=== PATIENT | male | born 1970 | race Caucasian/White ===

== ENCOUNTER → 2019-05-08 12:18 | Outpatient (BNVA) | payer MEDICAID, SELFPAY | PROVIDERS: Family Provider Family Medicine; PCP Family Medicine; Visit Provider Family Medicine | DX: Z01.89 Encounter for other specified special examinations (principal) | CPT/HCPCS: 36415; 83036 ==

== ENCOUNTER → 2019-06-09 09:45 | Outpatient (BNVA) | payer MEDICAID, SELFPAY | PROVIDERS: Family Provider Family Medicine; PCP Family Medicine; Visit Provider Family Medicine | DX: I10 Essential (primary) hypertension (principal); E11.9 Type 2 diabetes mellitus without complications; M50.30 Other cervical disc degeneration, unspecified cervical region; J44.9 Chronic obstructive pulmonary disease, unspecified | CPT/HCPCS: 80053; 80061; 82044; 85025 ==

== ENCOUNTER → 2019-08-07 07:48 | Outpatient (BNVA) | payer MEDICAID, SELFPAY | PROVIDERS: Family Provider Family Medicine; PCP Family Medicine; Visit Provider Nurse Practitioner | DX: F33.1 Major depressive disorder, recurrent, moderate (principal); F41.1 Generalized anxiety disorder | CPT/HCPCS: 99213 ==

== ENCOUNTER → 2019-09-01 09:23 | Outpatient (BNVA) | payer MEDICAID, SELFPAY | PROVIDERS: Family Provider Family Medicine; PCP Family Medicine; Visit Provider Family Medicine | DX: E78.5 Hyperlipidemia, unspecified (principal) | CPT/HCPCS: 80053; 80061 ==

== ENCOUNTER → 2019-11-09 07:34 | Outpatient (BNVA) | payer MEDICAID, SELFPAY | PROVIDERS: Family Provider Family Medicine; PCP Family Medicine; Visit Provider Nurse Practitioner | DX: F33.1 Major depressive disorder, recurrent, moderate (principal); F41.1 Generalized anxiety disorder | CPT/HCPCS: 99213 ==

== ENCOUNTER → 2019-12-01 11:46 | Outpatient (BNVA) | payer MEDICAID, SELFPAY | PROVIDERS: Family Provider Family Medicine; PCP Family Medicine; Visit Provider Family Medicine | DX: I10 Essential (primary) hypertension (principal); M50.30 Other cervical disc degeneration, unspecified cervical region; R73.03 Prediabetes; E78.5 Hyperlipidemia, unspecified | CPT/HCPCS: 80053; 80061; 83036 ==

== ENCOUNTER → 2020-01-23 07:40 | Outpatient (BNVA) | payer MEDICAID, SELFPAY | PROVIDERS: Family Provider Family Medicine; PCP Family Medicine; Visit Provider Nurse Practitioner | DX: F41.1 Generalized anxiety disorder (principal); F33.1 Major depressive disorder, recurrent, moderate | CPT/HCPCS: 99213 ==

== ENCOUNTER → 2020-06-03 09:04 | Outpatient (BNVA) | payer MEDICAID, SELFPAY | PROVIDERS: Family Provider Family Medicine; PCP Family Medicine; Visit Provider Family Medicine | DX: E78.5 Hyperlipidemia, unspecified (principal); I10 Essential (primary) hypertension; Z13.6 Encounter for screening for cardiovascular disorders; R35.1 Nocturia; E11.9 Type 2 diabetes mellitus without complications; M50.30 Other cervical disc degeneration, unspecified cervical region | CPT/HCPCS: 80053; 80061; 81015; 83036; 84153; 85025 ==

== ENCOUNTER → 2020-06-04 16:20 | Outpatient (BNVA) | payer MEDICAID, SELFPAY | PROVIDERS: Family Provider Family Medicine; PCP Family Medicine; Visit Provider Family Medicine | DX: E78.5 Hyperlipidemia, unspecified (principal); I10 Essential (primary) hypertension; Z13.6 Encounter for screening for cardiovascular disorders; R35.1 Nocturia; E11.9 Type 2 diabetes mellitus without complications; M50.30 Other cervical disc degeneration, unspecified cervical region; R79.89 Other specified abnormal findings of blood chemistry | CPT/HCPCS: 82977 ==

== ENCOUNTER → 2020-06-11 08:54 | Outpatient (BNVA) | payer MEDICAID, SELFPAY | PROVIDERS: Family Provider Family Medicine; PCP Family Medicine; Visit Provider Nurse Practitioner | DX: F33.1 Major depressive disorder, recurrent, moderate (principal); F41.1 Generalized anxiety disorder | CPT/HCPCS: 99214 ==

== ENCOUNTER → 2020-09-10 08:09 | Outpatient (BNVA) | payer MEDICAID, SELFPAY | PROVIDERS: Family Provider Family Medicine; PCP Family Medicine; Visit Provider Nurse Practitioner | DX: F33.1 Major depressive disorder, recurrent, moderate (principal); F41.1 Generalized anxiety disorder | CPT/HCPCS: 99214 ==

== ENCOUNTER 2020-09-30 09:00 | Outpatient (CLI) | payer MEDICAID, SELFPAY | END 2020-09-30 09:01 | disposition home or self-care (01) | LOC: LAB 12-09 12:00 | PROVIDERS: PCP Family Medicine; Visit Provider Family Medicine | DX: E78.5 Hyperlipidemia, unspecified (principal) | CPT/HCPCS: 80053; 83036 ==

== ENCOUNTER 2020-10-02 12:58 | Outpatient (CLI) | payer MEDICAID, SELFPAY ==
--- NOTE | 2020-10-02 13:30 | XR_ITS ---
WS: [id number] KNEE LEFT TECHNIQUE: 3 views of the left knee CLINICAL INFORMATION: acute left knee pain COMPARISON: None. FINDINGS: Left knee is normal in appearance. No evidence of acute fracture dislocation. Small suprapatellar eff usion. Mild soft tissue edema.. Patella is normal. XR/XR knee LT 3V* [id number] IMPRESSION: 1. Small suprapatellar effusion with mild soft tissue edema. 2. No acute fractures. Kellgren-Dmitriy Classification: grade 0 (none): definite absence of x-ray skylar nges of osteoarthritis
--- NOTE | 2020-10-02 14:00 | XR_ITS ---
WS: [id number] HIP WITH PELVIS RIGHT TECHNIQUE: 3 views of the right hip with pelvis CLINICAL INFORMATION: acute right hip pain COMPARISON: None. FINDINGS: Normal anatomic alignment. Right hip is normal in appearance. No acute fractures. Normal visualized r ight pubic rami. XR/XR hip RT 2-3V wo/w pel* [id number] IMPRESSION: Normal right hip Tonnis classification:
== END 2020-10-02 12:59 | disposition home or self-care (01) ==
LOC: RADWPI 13:00
PROVIDERS: PCP Family Medicine; Visit Provider Family Medicine
DX: M25.551 Pain in right hip (principal); M25.562 Pain in left knee; M25.462 Effusion, left knee; R60.0 Localized edema
CPT/HCPCS: 73502; 73562

== ENCOUNTER 2020-11-01 08:03 | Outpatient (CLI) | payer MEDICAID, SELFPAY ==
[2020-11-01 08:27] VITALS: BMI 30.3
--- NOTE | 2020-11-01 08:28 | ECG_ITS ---
[facility] Test Date: 2020-11-01 Pat Name: Joselito Harris Department: Room: Gender: Male Investor Relations Coordinator: : 1970 Requested By: Cindy Bolanos Order Number: [id number] Kae MD: Dhruv Galloway M.D. Interpretive Statements NAME OF STUDY: LEXISCAN SESTAMIBI STRESS TEST INDICATION: [Atypical Chest Pain, ] Procedure: At the baseline, the blood pressure was 136/79 mmHg with a heart rate of 68 bpm. The electrocardiogram showed normal sinus rhythm, normal axis with normal ST and T's. The Lexiscan was infused over a period of 20 seconds. A total of 0.4 mg of Lexiscan was infused. The stress phase was continued for a total of 5 minutes. Heart rate was at the end of stress phase was 73 bpm and a blood pressure of 128/71 mmHg. The EKG at the peak infusion revealed since normal sinus rhythm with no significant ST-T wave changes. Sestamibi was injected 20 seconds after the Lexiscan infusion. Blood pressure at the end of recovery phase was 134/80 mmHg with a heart rate of 78 bpm. Conclusion: 1. Normal EKG response to Lexiscan infusion 2. No Lexiscan induced chest pain or cardiac arrhythmia. 3. Normal blood pressure and heart rate response. 4. Sestamibi/sestamibi perfusion scan pending; see separate report. Electronically Signed On 11-06-2020 13:27:15 CDT by Dhruv Galloway M.D. [id number]
--- NOTE | 2020-11-01 08:28 | NMCV_ITS ---
NM chaitanya perf SPECT r/s* [id number] Joselito Harris Age: 50 Gender: M : 1970 Exam Date: 11/01/2020 09:20 Ordering Phys: Cindy Bolanos DO Technologist: YAMILE Ko Exam Location: [facility] Indications: ATYPICAL CHEST PAIN STRESS TEST Please see separate stress test report [facility] for full findings IMAGE PROTOCOL Rest/Stress 1 Lexiscan Day Radiopharmaceutical Dose (mCi) Administration Site Administered by Rest: Tc-99m 10.6 IV YAMILE Carballo Sestamibi Stress:Tc-99m 32.4 IV YAMILE Carballo Sestamibi Rest: 01-Nov-2020 60 Discovery 630 Stress: 01-Nov-2020 30 Discovery 630 0.4mg Lexiscan. Images obtained in supine and prone position. SPECT RESULTS Technical Quality: Excellent Raw Data Analysis: Normal Image Corrections: No attenuation or motion correction applied Summed Stress Score: 1 Summed Rest Score: 1 Summed Difference Score: 0 PERFUSION FINDINGS There is homogenous radiotracer uptake throughout the myocardium. No evidence of ischemia is noted FUNCTIONAL RESULTS (calculated via Gated SPECT) Stress Image LV EF (%): 74 Stress EDV (mL):108 TID: 1.13 Stress ESV (mL):28 FUNCTIONAL FINDINGS: There is normal left ventricular systolic function. IMPRESSIONS 1. Normal myocardial perfusion imaging. No evidence of ischemia noted 2. LV systolic function is normal Dhruv Galloway MD (Electronically Signed) Final Date: 01 November 2020 11:28 S
[2020-11-01] MEDS: regadenoson 0.4 Mg/5 ml Syringe IVP (10:02)
[2020-11-01 10:12] VITALS: BP 134/80; PULSE 78
== END 2020-11-01 08:04 | disposition home or self-care (01) ==
LOC: CDL 08:05
PROVIDERS: PCP Family Medicine; Visit Provider Family Medicine
DX: R07.89 Other chest pain (principal)
CPT/HCPCS: 78452; 80053; 83036; 93017; A9500; J2785

== ENCOUNTER → 2020-12-05 08:28 | Outpatient (BNVA) | payer MEDICAID, SELFPAY | PROVIDERS: PCP Family Medicine; Visit Provider Nurse Practitioner | DX: F41.1 Generalized anxiety disorder (principal); F33.1 Major depressive disorder, recurrent, moderate | CPT/HCPCS: 99214 ==

== ENCOUNTER → 2021-02-17 12:08 | Outpatient (BNVA) | payer MEDICAID, SELFPAY | PROVIDERS: PCP Family Medicine; Visit Provider Family Medicine | DX: I10 Essential (primary) hypertension (principal); E78.5 Hyperlipidemia, unspecified; R73.03 Prediabetes | CPT/HCPCS: 80053; 80061; 83036; 83721; 85025 ==

== ENCOUNTER → 2021-03-17 07:40 | Outpatient (BNVA) | payer MEDICAID, SELFPAY | PROVIDERS: PCP Family Medicine; Visit Provider Nurse Practitioner | DX: F41.1 Generalized anxiety disorder (principal); F33.1 Major depressive disorder, recurrent, moderate | CPT/HCPCS: 99214 ==

== ENCOUNTER → 2021-09-04 11:13 | Outpatient (BNVA) | payer MEDICAID, SELFPAY | PROVIDERS: PCP Family Medicine; Visit Provider Nurse Practitioner | DX: F41.1 Generalized anxiety disorder (principal); F33.1 Major depressive disorder, recurrent, moderate | CPT/HCPCS: 80053; 80061; 80074; 82043; 83036; 99214 ==

== ENCOUNTER 2021-12-29 08:04 | Outpatient (CLI) | payer MEDICAID, SELFPAY ==
--- NOTE | 2021-12-29 08:30 | US_ITS ---
WS: [id number] RIGHT UPPER QUADRANT ULTRASOUND HISTORY: transaminitis COMPARISON: None available. Liver: 20.7 cm in length. Liver is enlarged and dense. Coarse echotexture throughout. Portions of the liver difficult to penetrate. No mass or bile duct dilatation. Portal Vein: Normal hepatopetal flow with monophasic waveform. Gallbladder: Normally distended gallbladder with no stones or wall thickening. CBD: 0.4 cm Pancreas: Normal size and echogenicity. Right kidney: 13.9 cm in length. Normal size and echogenicity. No hydronephrosis or mass. Aorta and IVC: Unremarkable abdominal aorta and IVC. No ascites. US/US liver [id number] IMPRESSION: 1. Moderate hepatomegaly with moderate to severe hepatic steatosis. 2. No bile duct dilatation. 3. Negative gallbladder.
== END 2021-12-29 08:05 | disposition home or self-care (01) ==
LOC: RAD 08:05
PROVIDERS: PCP Family Medicine; Visit Provider Family Medicine
DX: R74.01 Elevation of levels of liver transaminase levels (principal); R16.0 Hepatomegaly, not elsewhere classified; K76.0 Fatty (change of) liver, not elsewhere classified
CPT/HCPCS: 76705

== ENCOUNTER 2022-03-02 11:05 | Outpatient (CLI) | payer MEDICAID, SELFPAY ==
--- NOTE | 2022-03-02 11:11 | XRR_ITS ---
PROCEDURE INFORMATION: Exam: XR Lumbosacral Spine Exam date and time: 03/02/2022 11:17 AM Age: 51 years old Clinical indication: Low back pain and sciatica; Right; Patient HX: History--chronic low back pain and RT hip pain TECHNIQUE: Imaging protocol: Radiologic exam of the lumbosacral spine. Views: 2 or 3 views. COMPARISON: MR lumbar spine wo con* [id number] 04/25/2015 11:27 AM FINDINGS: Bones/joints: Normal. No acute fracture. Normal alignment. Soft tissues: Unremarkable. XR/XR lumbar spine 2-3V* [id number] IMPRESSION: No acute findings.
== END 2022-03-02 11:06 | disposition home or self-care (01) ==
LOC: RAD 11:06
PROVIDERS: PCP Family Medicine; Visit Provider Family Medicine
DX: M54.50 Low back pain, unspecified (principal); G89.29 Other chronic pain; I10 Essential (primary) hypertension
CPT/HCPCS: 72100; 80053; 85025

== ENCOUNTER → 2022-08-24 09:41 | Outpatient (BNVA) | payer MEDICAID, SELFPAY | PROVIDERS: PCP Family Medicine; Visit Provider Family Medicine | DX: I10 Essential (primary) hypertension (principal); R35.1 Nocturia; R73.03 Prediabetes; E78.5 Hyperlipidemia, unspecified; J43.1 Panlobular emphysema; M54.16 Radiculopathy, lumbar region; G89.29 Other chronic pain | CPT/HCPCS: 80053; 80061; 83036; 84153; 85025 ==

== ENCOUNTER 2022-09-10 08:58 | Outpatient (CLI) | payer MEDICAID, SELFPAY ==
--- NOTE | 2022-09-10 09:30 | MR_ITS ---
WS: [id number] MRI LUMBAR SPINE NONCONTRAST TECHNIQUE: Sagittal T1, T2 and STIR imaging. Axial T1 and T2 imaging. CLINICAL INFORMATION: low back pain radiating into right leg COMPARISON: MRI 2016 FINDINGS: Mild lumbar curve. No acute compression. No high-grade central canal stenosis. L1-L2: Mild facet arthropathy. Spinal canal and foramen are patent. L2-L3: Mild annular bulging with mild central canal stenosis. Slight narrowing of the subarticular re cess bilaterally. Mild facet arthropathy. Small LEFT foraminal protrusion with mild LEFT foraminal na rrowing. RIGHT foramen is patent. L3-L4: Mild annular bulging with mild central canal stenosis. Impingement traversing L4 nerve roots L EFT greater than RIGHT. Mild LEFT foraminal narrowing. RIGHT foramen is patent. Slight retrolisthesis . Mild facet arthropathy. L4-L5: Mild annular bulging with slight narrowing of the subarticular recess bilaterally. Mild centra l canal stenosis. Moderate facet arthropathy. Mild RIGHT greater than LEFT foraminal narrowing. L5-S1: No significant disc bulging. Mild facet arthropathy. Spinal canal and foramen are patent. Visualized pelvic bony structures: Normal. Paravertebral soft tissues: Normal. MR/MR lumbar spine wo con* [id number] IMPRESSION: 1. Tiny LEFT foraminal protrusion L2-L3 with slight contact of the exiting LEF T L2 nerve root. This is progressed compared to previous. 2. Mild central canal stenosis L2-L3 L3-L4 and L4-L5 with impingement on the s ubarticular recess bilateral L2-L3, LEFT L3-L4 and bilateral L4-L5. Central can al stenosis is progressed. 3. Mild LEFT L3-L4 foraminal narrowing progressed compared to previous. 4. Mild bilateral L4-L5 foraminal narrowing. 5. Moderate facet arthropathy worse at L3-L4 and L4-L5.
== END 2022-09-10 08:59 | disposition home or self-care (01) ==
PROVIDERS: PCP Family Medicine; Visit Provider Family Medicine
DX: M54.16 Radiculopathy, lumbar region (principal); G92.9 Unspecified toxic encephalopathy; M51.26 Other intervertebral disc displacement, lumbar region; M48.061 Spinal stenosis, lumbar region without neurogenic claudication; M47.817 Spondylosis without myelopathy or radiculopathy, lumbosacral region
CPT/HCPCS: 72148; 80053; 80061; 83036; 84153; 85025

== ENCOUNTER → 2022-10-08 10:16 | Outpatient (BNVA) | payer MEDICAID, SELFPAY | PROVIDERS: PCP Family Medicine; Visit Provider Anesthesiology Pain Medicine | DX: G89.29 Other chronic pain (principal); M54.41 Lumbago with sciatica, right side; M79.604 Pain in right leg; M79.605 Pain in left leg; I77.9 Disorder of arteries and arterioles, unspecified | CPT/HCPCS: 72050; 99205 ==

== ENCOUNTER → 2022-11-24 13:34 | Outpatient (BNVA) | payer MEDICAID, SELFPAY | PROVIDERS: PCP Family Medicine; Visit Provider Anesthesiology Pain Medicine | DX: M47.816 Spondylosis without myelopathy or radiculopathy, lumbar region (principal); M54.41 Lumbago with sciatica, right side; G89.29 Other chronic pain | CPT/HCPCS: 64493; 64494; 64495; J3490 ==

== ENCOUNTER → 2022-12-08 09:03 | Outpatient (BNVA) | payer MEDICAID, SELFPAY | PROVIDERS: PCP Family Medicine; Visit Provider Anesthesiology Pain Medicine | DX: M54.41 Lumbago with sciatica, right side (principal); G89.29 Other chronic pain | CPT/HCPCS: 99214 ==

== ENCOUNTER → 2022-12-16 13:24 | Outpatient (BNVA) | payer MEDICAID, SELFPAY | PROVIDERS: PCP Family Medicine; Visit Provider Anesthesiology Pain Medicine | DX: M47.816 Spondylosis without myelopathy or radiculopathy, lumbar region (principal); M54.41 Lumbago with sciatica, right side; G89.29 Other chronic pain | CPT/HCPCS: 64493; 64494; 64495; J3490 ==

== ENCOUNTER → 2023-01-13 10:51 | Outpatient (BNVA) | payer MEDICAID, SELFPAY | PROVIDERS: PCP Family Medicine; Referring Provider Anesthesiology Pain Medicine; Visit Provider Anesthesiology Pain Medicine | DX: M54.41 Lumbago with sciatica, right side (principal); G89.29 Other chronic pain; M47.816 Spondylosis without myelopathy or radiculopathy, lumbar region; M51.26 Other intervertebral disc displacement, lumbar region; M48.061 Spinal stenosis, lumbar region without neurogenic claudication | CPT/HCPCS: 99214 ==

== ENCOUNTER → 2023-02-22 09:56 | Outpatient (BNVA) | payer MEDICAID, SELFPAY | PROVIDERS: PCP Family Medicine; Visit Provider Family Medicine | DX: R73.03 Prediabetes (principal) | CPT/HCPCS: 80053; 82043; 83036 ==

== ENCOUNTER → 2023-03-18 10:03 | Outpatient (BNVA) | payer MEDICAID, SELFPAY | PROVIDERS: PCP Family Medicine; Referring Provider Family Medicine; Visit Provider Orthopaedic Surgery | DX: M54.16 Radiculopathy, lumbar region (principal); G89.29 Other chronic pain; M48.062 Spinal stenosis, lumbar region with neurogenic claudication; M25.78 Osteophyte, vertebrae | CPT/HCPCS: 72100; 99204 ==

== ENCOUNTER → 2023-04-16 11:09 | Outpatient (BNVA) | payer MEDICAID, SELFPAY ==
[2023-04-07 09:38] VITALS: BP 132/75; BMI 29.3
== END ==
PROVIDERS: PCP Family Medicine; Visit Provider Family Medicine
DX: Z01.818 Encounter for other preprocedural examination (principal)
CPT/HCPCS: 80053; 81000; 85025

== ENCOUNTER 2023-04-19 05:40 | Day surgery (SDC) | payer MEDICAID, SELFPAY ==
--- OUTSIDE RECORDS SUMMARY | 2023-03-19 11:47 | XMS_ITS | Continuity of Care Document ---
Author Name Unknown Organization [facility] Address [id number] [address] Phone Care Team Providers Care Swabber Name Role Phone Jason MARTIN MD, Kyle Unavailable Unavailab le Allergies, Adverse Reactions, Alerts Substance Reaction Status Criticality CYCLOBENZAPRINE HCL Active No Infor mation Medications Medication Instructions Dosage Effective Dates (start - stop) Status Comments hydrocodone 7.5 mg-acetaminophen 325 mg tablet take 1 tablet by oral route every 4 hours as needed for pain 1 tablet - Active GABAPENTIN (unknown strength) take 3 capsule by oral route 3 times every day Not Available - Active SEROQUEL (unknown strength) take 1 tablet by oral route 2 times every day Not Available - Active CELEBREX (unknown strength) take 2 capsule by oral route 2 times every day Not Available - Active CYMBALTA (unknown strength) take 1 capsule by oral route 2 times every day Not Available - Active LISINOPRIL-HYDROC HLOROTHIAZIDE (unknown strength) take 1 tablet by oral route every day Not Available - Active hydrocodone 7.5 mg-acetaminophen 325 mg tablet take 1 tablet by oral route every 4 hours as needed for pain 1 tablet - No Longer Active ibuprofen 600 mg tablet take 1 tablet by oral route every 6 hours with food as needed for pain - No Longer Active Procedures Procedure Date Post Op No Charge EDR Approval Note Surgical Removal Of Erupted Tooth Requir ing Elevat Surgical Removal Of Erupted Tooth Requir ing Elevat Extraction, Erupted Tooth Or Exposed Jenny t (Elevati Extraction, Erupted Tooth Or Exposed Jenny t (Elev Extraction, Erupted Tooth Or Exposed Jenny t (Elev Extraction, Erupted Tooth Or Exposed Jenny t (Elev Extraction, Erupted Tooth Or Exposed Jenny t (Elev Extraction, Erupted Tooth Or Exposed Jenny t (Elev Extraction, Erupted Tooth Or Exposed Jenny t (Elev Extraction, Erupted Tooth Or Exposed Jenny t (Elev Extraction, Erupted Tooth Or Exposed Jenny t ([facility] Oral Evaluation ??? Problem Focu sed EDR Approval Note Pre-Pay For Services Advance Directives Directive Yes / No Effective Date File Name No Information Encounters Encounter Description Practice Location Reason(s) For Visit Diagnoses Date Provider Providers Copied on Encounter [facility], [id number], [id number], [place] tel:[phone] [facility] Encounter for dental exam and cleaning w/o abnormal findings Jason Wright. [address] [place], [address], [place]. tel:[phone] Referring Provider: Kyle Helton, [address] [place], [address]. tel:[phone] [facility], [id number], [id number], [place] tel:[phone] [facility] Encounter for dental exam and cleaning w/o abnormal findings Jason Wright. [address] [place], [address], [place]. tel:[phone] Referring Provider: Kyle Helton, [address] [place], [address]. tel:[phone] [facility], [id number], [id number], [place] tel:[phone] [facility] Encounter for dental exam and cleaning w/o abnormal findings Jason Wright. [address] [place], [address], [place]. tel:[phone] Referring Provider: Kyle Helton, [place], [address]. tel:[phone] Family History Family Member Type Diagnosis Age At Onset No Information Payers Payer name Insurance type Covered alliance party ID Authorizkristi tiboni(s) No Information Social History Type Description Quantity Date Captured Comments Alcohol Use Details Caffeine Use Details Unknown Tobacco Use Status Occasional cigarette smoker Smoking Status Current some day smoker Smoking Tobacco Use Details Cigarette: No Details Available Cigarette: No Details Available Sex Male Vital Signs Date / Time: Height Weight BMI Pulse Rate Blood Pressure Temperature Respiratory Rate Body Surface Area Head Circumference Head Circ. Percentile Wt./Maeya. Percentile BMI percentile Pulse Ox Inhaled Ox 3:44 PM 130/83 mm[Hg] Chief Complaint And Reason For Visit No Information Reason For Referral Reason For Referral No Information Plan Of Treatment Date Type Action Status Goal Tobacco cessation counseling completed Goal Tobacco cessation counseling completed History Of Present Illness Encounter Date Complaint History Of Prese nt Illness No Information Functional Status Date Functional Assessmen t No Information Instructions Date Instruction Additional Infor mation Lifestyle education Related to D ental Examination Lifestyle education Related to D ental Examination Assessments Type Assessment Date No Information Patient Care Teams Name Effective Dates (start - stop) Status Members No Information
[2023-04-07 09:38] VITALS: BP 132/75; BMI 29.3
[2023-04-19] VITALS (12 sets, daily range): BP systolic 120–140; BP diastolic 63–87; PULSE 66–88; RESP 12–18; TEMP 36.1–36.4; O2SAT 92–98; BMI 28.5
--- NOTE | 2023-04-19 | XR_ITS ---
WS: [id number] XR lumbar spine 1V [id number] REASON FOR EXAM: L3-4; L4-5 decompression FINDINGS: Intraoperative examination. AP views during surgery demonstrate surgical device overlying the right L3-L4 and right L4-L5 disc sp aces. IMPRESSION: Lumbar localization during surgery.
--- OUTSIDE RECORDS SUMMARY | 2023-04-19 05:41 | XMS_ITS | Continuity of Care Document ---
Author Name Unknown Organization [facility] Address [id number] [address] Phone Care Team Providers Care Fairground Operator Name Role Phone Jason MARTIN MD, Kyle [...] Extraction, Erupted Tooth Or Exposed Jenny t ([facility] Oral Evaluation ??? Problem Focu sed EDR Approval Note Pre-Pay For Services Advance Directives Directive Yes / No Effective Date File Name No Information Encounters Encounter Description Practice Location Reason(s) For Visit Diagnoses Date Provider Providers Copied on Encounter [facility], [id number], [id number], [place] tel:[phone] [facility] Encounter for dental exam and cleaning w/o abnormal findings Jason Wright. [address] [place], [address], [place]. tel:[phone] Referring Provider: Kyle Helton, [address] [place], [address]. tel:[phone] [facility], [id number], [id number], [place] tel:[phone] [facility] Encounter for dental exam and cleaning w/o abnormal findings Jason Wright. [address] [place], [address], [place]. tel:[phone] Referring Provider: Kyle Helton, [address] [place], [address]. tel:[phone] [facility], [id number], [id number], [place] tel:[phone] [facility] Encounter for dental exam and cleaning w/o abnormal findings Jason Wright. [address] [place], [address], [place]. tel:[phone] Referring Provider: Kyle Helton, [place], [address]. tel:[phone] Family History Family Member Type Diagnosis Age [...] Surface Area Head Circumference Head Circ. Percentile Wt./Ameya. Percentile BMI percentile Pulse Ox Inhaled Ox [...]
[2023-04-19] MEDS: sodium chloride 0.9% 1,000 ML 30 ML IV (06:14)
[2023-04-19 06:20] LABS: Glucose Point of Care 114 mg/dL (70-110)
--- NOTE | 2023-04-19 06:37 | W.PM.OPSUD ---
Surgery/Procedure H&P Update DATE OF PROCEDURE: April 19, 2023 DATE H&P PERFORMED: 04/16/23 H&P UPDATE INFORMATION: I have reviewed H&P completed within last 30 days, I have examined patient prior to procedure and No changes to prior documentation PREOP DIAGNOSIS: Lumbar stenosis PLANNED PROCEDURE: Operation Date: 04/19/23 07:00 Proposed Procedures p L3-4 L4-S1 Lumbar Spine Decompression Lumbar Decompression- STAND ON THE RIGHT(Right) - Devin Zimmer DO
[2023-04-19] MEDS: ceFAZolin 2,000 MG in sodium chloride 0.9% (plus) 50 ML 100 MG IV (06:56)
--- NOTE | 2023-04-19 07:20 | ANES.PREANE2 ---
Pre-Anesthetic Assessment Height/Weight: Height 1.85 m Weight 97.976 kg Temp Pulse Resp BP Pulse Ox O2 Del Method 97.5 F L 66 18 120/76 98 Room Air 04/19/23 06:04 04/19/23 06:04 04/19/23 06:04 04/19/23 06:04 04/19/23 06:04 04/19/23 06:04 Preop Diagnosis: Lumbar stenosis Operation Date: 04/19/23 07:00 Proposed Procedures p L3-4 L4-S1 Lumbar Spine Decompression Lumbar Decompression- STAND ON THE RIGHT(Right) - Devin Zimmer, DO Was Beta Johnnie taken within 24 hours: N/A Was Clonidine taken within 24 hours: N/A Last intake: Intake Last Liquid Date 04/18/23 Last Liquid Time 19:00 Last Solid Date 04/18/23 Last Solid Time 19:00 Social No tobacco Exam alert, oriented x 3, clear to auscultation bilaterally and regular rate & rhythm Airway Submandibular: within normal limits Cervical ROM: Other (Hx cervical fusion) Mallampati: Class II Dentition: false History/ROS No significant history except as noted and No significant complaints Pulmonary Asthma and Chronic Obstructive Pulmonary Disease CV/HEM Hypertension GI Gastroesophageal Reflux Disease well-controlled Metabolic Hyperlipidemia Musc/skel Lower Back Pain and Osteoarthritis/DJD Anesthetic Plan ASA status: 2 Anesthesia: General Risk of > 500 ml blood loss (7ml/kg in children): No Medications/Allergies Home Medications Medication Instructions Recorded Confirmed Last Taken Type TENS #1 ea 03/02/22 03/18/23 Unknown Rx lisinopril 20 1 tab PO QDAY 90 days #90 tabs 10/07/22 04/19/23 04/18/23 Rx mg-hydrochlorothiazide 25 mg tablet sildenafil (pulm.hypertension) 20 40 mg (2 x 20 mg) PO ONCE #30 tabs 02/22/23 04/19/23 Unknown Rx mg tablet metformin 500 mg tablet,extended 500 mg PO QDAY 90 days #90 tabs 02/23/23 04/19/23 04/17/23 Rx release 24 hr budesonide-formoterol HFA 160 2 puff inhalation BID #10.2 grams 03/09/23 04/19/23 04/17/23 Rx mcg-4.5 mcg/actuation aerosol inhaler (Symbicort) omeprazole 40 mg capsule,delayed 40 mg PO QDAY 30 days #90 caps 03/09/23 04/19/23 04/19/23 Rx release tiotropium bromide 18 mcg capsule 1 cap inhalation DAILY #60 03/09/23 04/19/23 04/18/23 Rx with inhalation device (Spiriva inhalations with HandiHaler) albuterol sulfate 90 mcg/actuation 90 mcg inhalation DAILY 04/15/23 04/19/23 04/17/23 History aerosol inhaler (Ventolin HFA) amlodipine 10 mg tablet 10 mg PO DAILY 04/15/23 04/19/23 04/19/23 History atorvastatin 10 mg tablet 10 mg PO DAILY 04/15/23 04/19/23 04/19/23 History duloxetine 60 mg capsule,delayed 60 mg PO BID 04/15/23 04/19/23 04/19/23 History release escitalopram oxalate 10 mg tablet 10 mg PO DAILY 04/15/23 04/19/23 04/19/23 History fenofibrate nanocrystallized 145 145 mg PO DAILY 04/15/23 04/19/23 04/19/23 History mg tablet gabapentin 800 mg tablet 800 mg PO BID 04/15/23 04/19/23 04/19/23 History meloxicam 15 mg tablet 15 mg PO DAILY 04/15/23 04/19/23 04/17/23 History quetiapine 100 mg tablet 100 mg PO BEDTIME 04/15/23 04/19/23 04/18/23 History quetiapine 25 mg tablet 25 mg PO BEDTIME 04/15/23 04/19/23 04/18/23 History Allergies Allergy/AdvReac Type Severity Reaction Status Date / Time acetaminophen [From Lortab] Allergy ALGY-Hives Verified 04/16/23 11:18 cyclobenzaprine Allergy Unknown Verified 04/16/23 11:18 [From Flexeril] hydrocodone [From Lortab] Allergy ALGY-Hives Verified 04/16/23 11:18 povidone-iodine Allergy Unknown Verified 04/16/23 11:18 [From Betadine] soap [From Betadine] Allergy Unknown Verified 04/16/23 11:18 Current Medications Generic Name Dose Route Start Last Admin Trade Name Freq PRN Reason Stop Dose Admin Sodium Chloride 1,000 mls @ 30 mls/hr 04/19/23:00 04/19/23 06:14 Sodium Chloride 0.9% IV 04/20/23 05:59 30 mls/hr .Q24H MIRIAN Administration PFSH Anesthesia Medical History Hepatic steatosis Psychiatric care Umbilical hernia, incarcerated Generalized anxiety disorder Major depressive disorder, recurrent, moderate Prediabetes Essential hypertension Anxiety and depression DDD (degenerative disc disease), cervical GERD (gastroesophageal reflux disease) COPD (chronic obstructive pulmonary disease) Erectile dysfunction Surgical History H/O cataract extraction History of neck surgery H/O knee surgery Family History Other CAD (coronary artery disease) Social History Smoking and tobacco/nicotine status: former use of tobacco/nicotine Alcohol intake: current Alcohol intake frequency: 0-2 Drinks per Day Alcohol type: beer Substance/Drug Use: current Substance/Drug use frequency: daily Data Anesthesia Cardiac Studies: Sestamibi Stress Test (Cardiology) 11/01/20
[2023-04-19] MEDS: lidocaine-epi 2% 20 mL INJ 10 ML INJECTION (07:39)
--- NOTE | 2023-04-19 08:31 | PM.OP ---
Operative Report Date of procedure: April 19, 2023 Pre-op diagnosis: Lumbar stenosis with neurogenic claudication Post-op diagnosis: same Procedure done: 1. L3-4 laminectomy with partial facetectomy 2. L4-5 laminectomy with partial facetectomy Surgeon: Devin Zimmer DO Estimated blood loss (mL): 5 Procedure: 1. L3-4 laminectomy with partial facetectomy 2. L4-5 laminectomy with partial facetectomy Patient is brought to the operative suite. After undergoing anesthesia they are placed in the prone position. All areas of impingement are well padded. Patient is then prepped and draped in the normal sterile fashion. A skin incision is made over the L3-4 level. This is confirmed under c-arm guidance. A series of dilators are passed and the tubular retractor is docked on the L3 lamina. A bovie is used to clear the soft tissue off the lamina and the L 3/4 facet joint. A high speed ermias is then used to perform the laminectomy and take down the medial aspect of the L 3/4 facet joint. A kerrison rongeure was then used to take down the remaining lamina and smooth the edge of the laminectomy up to the point where the ligamentum flavum attaches. Attention was then brought to the medial aspect of the facet joint. The remaining medial aspect of the superior and inferior aspect of the facet joint were taken down with the kerrison from the pedicle of L3 to L 4. The facet joint had significant hypertrophy. Attention was then brought to the Ligamentum Flavum. The ligament was taken down from the lamina of L3 to L4 and out medially to the remaining facet joint. The ligament was thick. The dura was then exposed. The dura was in good repair. The L3 nerve was then traced with a curette out the L3/4 foramen and found to be adequately decompressed. The L4 nerve was traced with a curette around the L4 pedicle. The lateral recess was opened with a kerrison helping to further decompress the L4 nerve. Wound is then irrigated copiously with saline and surgiflo is used to stop any bleeding. The tubular retractor is removed and the A skin incision is made over the L4-5 level. This is confirmed under c-arm guidance. A series of dilators are passed and the tubular retractor is docked on the L4 lamina. A bovie is used to clear the soft tissue off the lamina and the L 4/5 facet joint. A high speed ermias is then used to perform the laminectomy and take down the medial aspect of the L 4/5 facet joint. A kerrison rongeure was then used to take down the remaining lamina and smooth the edge of the laminectomy up to the point where the ligamentum flavum attaches. Attention was then brought to the medial aspect of the facet joint. The remaining medial aspect of the superior and inferior aspect of the facet joint were taken down with the kerrison from the pedicle of L4 to L 5. The facet joint had significant hypertrophy. Attention was then brought to the Ligamentum Flavum. The ligament was taken down from the lamina of L4 to L5 and out medially to the remaining facet joint. The ligament was thick. The dura was then exposed. The dura was in good repair. The L4 nerve was then traced with a curette out the L4/5 foramen and found to be adequately decompressed. The L5 nerve was traced with a curette around the L5 pedicle. The lateral recess was opened with a kerrison helping to further decompress the L5 nerve. Wound is then irrigated copiously with saline and surgiflo is used to stop any bleeding. The tubular retractor is removed and the wound is closed with vicryl and monocryl suture. Glue is then used to protect the wound. A sterile dressing is then placed. Patient was then placed in the supine position and transferred to the PACU in stable condition.
[2023-04-19] MEDS: oxyCODONE 5 mg IR Tab/Cap PO (09:45)
--- NOTE | 2023-04-19 16:29 | ANE.PACU2 ---
Inpatient post-anesthesia follow up: Airway intact: Yes Vital signs: Temperature 97.0 F Pulse Rate 81 Respiratory Rate 16 Blood Pressure 125/77 Pulse Oximetry 95 Oxygen Delivery Me thod Room Air Oxygen Flow Rate 2 Fraction of Inspir ed Oxygen Hydration adequate: Yes Nausea and vomiting: No Pain level: 3 Mental status: Baseline
== END 2023-04-19 10:55 | disposition home or self-care (01) ==
PROVIDERS: PCP Family Medicine; Visit Provider Orthopaedic Surgery
PROC: (CPT 63005; principal; 2023-04-19 07:00)
DX: M48.062 Spinal stenosis, lumbar region with neurogenic claudication (principal); Z98.1 Arthrodesis status; J44.9 Chronic obstructive pulmonary disease, unspecified; E78.5 Hyperlipidemia, unspecified; K21.9 Gastro-esophageal reflux disease without esophagitis; Z79.84 Long term (current) use of oral hypoglycemic drugs; I10 Essential (primary) hypertension; Z87.891 Personal history of nicotine dependence; R73.03 Prediabetes
CPT/HCPCS: 63047; 63048; 36416; 72020; 76000; 82962; J0690; J1100; J2405; J2704; J3010; J3490; J7030

== ENCOUNTER → 2023-05-04 14:33 | Outpatient (BNVA) | payer MEDICAID, SELFPAY ==
[2023-04-07 09:38] VITALS: BP 132/75; BMI 29.3
== END ==
PROVIDERS: PCP Family Medicine; Visit Provider Orthopaedic Surgery
DX: Z47.89 Encounter for other orthopedic aftercare (principal)
CPT/HCPCS: 99024

== ENCOUNTER → 2023-06-01 14:08 | Outpatient (BNVA) | payer MEDICAID, SELFPAY ==
[2023-04-07 09:38] VITALS: BP 132/75; BMI 29.3
== END ==
PROVIDERS: PCP Family Medicine; Visit Provider Orthopaedic Surgery
DX: M25.512 Pain in left shoulder; Z47.89 Encounter for other orthopedic aftercare
CPT/HCPCS: 99024

== ENCOUNTER → 2023-07-13 09:25 | Outpatient (BNVA) | payer MEDICAID, SELFPAY ==
[2023-04-07 09:38] VITALS: BP 132/75; BMI 29.3
== END ==
PROVIDERS: PCP Family Medicine; Referring Provider Orthopaedic Surgery; Visit Provider Student in an Organized Health Care Education/Training Program
DX: M25.512 Pain in left shoulder (principal); M75.42 Impingement syndrome of left shoulder
CPT/HCPCS: 20610; 73030; 99024; 99204; J3301

== ENCOUNTER → 2023-08-19 13:50 | Outpatient (BNVA) | payer MEDICAID, SELFPAY ==
[2023-04-07 09:38] VITALS: BP 132/75; BMI 29.3
== END ==
PROVIDERS: PCP Family Medicine; Visit Provider Family Medicine
DX: R73.03 Prediabetes (principal); R35.1 Nocturia; I10 Essential (primary) hypertension
CPT/HCPCS: 80053; 80061; 83036; 84153

== ENCOUNTER → 2023-10-28 15:15 | Outpatient (BNVA) | payer MEDICAID, SELFPAY ==
[2023-08-23 11:55] VITALS: BP 118/64; BMI 29.5
== END ==
PROVIDERS: PCP Family Medicine; Visit Provider Student in an Organized Health Care Education/Training Program
DX: M75.42 Impingement syndrome of left shoulder (principal)
CPT/HCPCS: 20610; 99213; J3301

== ENCOUNTER → 2024-04-25 13:58 | Outpatient (BNVA) | payer MEDICAID, SELFPAY ==
[2023-08-23 11:55] VITALS: BP 118/64; BMI 29.5
== END ==
PROVIDERS: PCP Family Medicine; Visit Provider Student in an Organized Health Care Education/Training Program
DX: M75.42 Impingement syndrome of left shoulder (principal); S49.92XA Unspecified injury of left shoulder and upper arm, initial encounter; X58.XXXA Exposure to other specified factors, initial encounter
CPT/HCPCS: 20610; 73030; 80053; 83036; 85025; 85651; 86140; 99213; J3301

== ENCOUNTER 2024-05-08 08:13 | Outpatient (CLI) | payer MEDICAID, SELFPAY ==
[2023-08-23 11:55] VITALS: BP 118/64; BMI 29.5
--- NOTE | 2024-05-08 08:30 | USCV_ITS ---
Joselito Harris Age: 53 Gender: M : 1970 Exam Date: 05/08/2024 08:20 Ordering Phys: Sailaja Eddy MD Technologist: [facility]R [place]am [place] [facility] [place]ication: opthalmology Risk Factors: Previous Vascular Surgery: Right Brachial BP: / Left Brachial BP: / Right Left Velocity (cm/s) Spectral Plaque Velocity (cm/s) Spectral Plaque Syst/Diast Broadening Syst/Diast Broadening 120.00/26.70 Prox CCA 98.70 / 25.20 77.20/ 26.70 Mid CCA 76.10 / 22.50 79.30/ 26.90 Distal CCA 76.30 / 23.20 63.10/ 21.30 Prox ICA 66.60 / 22.30 69.70/ 29.50 Mid ICA 89.20 / 36.70 74.30/ 27.20 Distal ICA 74.20 / 19.90 77.20 ECA 90.30 0.80 ICA/CCA 0.90 Antegrade Vertebral Antegrade 42.90/ 10.40 cm/s 47.30/ 15.30 cm/s Tri Subclavian Tri 70.40 65.90 CONCLUSIONS Right ICA stenosis <50%. Left ICA stenosis <50%. Intimal thickening in the common carotid arteries and internal carotid arteries bilaterally. Normal antegrade Doppler flow noted in the right vertebral artery. Normal antegrade Doppler flow noted in the left vertebral artery. Kyaw Pond MD (Electronically Signed) Final Date: 08 May 2024 10:13 S
== END 2024-05-08 08:14 | disposition home or self-care (01) ==
LOC: RAD 08:14
PROVIDERS: PCP Family Medicine; Visit Provider Family Medicine
DX: H35.9 Unspecified retinal disorder (principal); E78.5 Hyperlipidemia, unspecified; I10 Essential (primary) hypertension; I65.23 Occlusion and stenosis of bilateral carotid arteries; R93.89 Abnormal findings on diagnostic imaging of other specified body structures
CPT/HCPCS: 93880

== ENCOUNTER → 2024-05-09 12:47 | Outpatient (BNVA) | payer MEDICAID, SELFPAY ==
[2023-08-23 11:55] VITALS: BP 118/64; BMI 29.5
== END ==
PROVIDERS: PCP Family Medicine; Visit Provider Orthopaedic Surgery
DX: Z98.890 Other specified postprocedural states (principal); M54.9 Dorsalgia, unspecified; M25.551 Pain in right hip
CPT/HCPCS: 72100; 73502; 99214

== ENCOUNTER 2024-05-15 08:01 | Outpatient (CLI) | payer MEDICAID, SELFPAY ==
[2023-08-23 11:55] VITALS: BP 118/64; BMI 29.5
--- NOTE | 2024-05-15 08:45 | MR_ITS ---
WS: [id number] EXAMINATION: MR hip RT wo con* [id number] ORDER DATE: 05/15/2024 8:19 AM COMPARISON: None. HISTORY: rt hip pain CONTRAST: None. TECHNIQUE: Coronal STIR of the Pelvis. Coronal proton density, coronal T1, axial T2 fat sat, axial T1 , sagittal T2 fat sat, and sagittal T1 performed of the hip. FINDINGS: Mild degenerative narrowing RIGHT hip. Normal bone marrow signal. No acute fractures. No evidence of avascular necrosis. Normal visualized RIGHT pubic rami. Proximal femoral shafts are normal. Mild degenerative LEFT hip. Normal bone marrow signal in the sacrum. Small cystic lesion LEFT ilium l ikely degenerative. No RIGHT inguinal lymphadenopathy. Small fat-containing RIGHT inguinal hernia. Pa rtially visualized edema in the RIGHT paraspinal musculature at the edge of the [id number]-lbeo. MR/MR hip RT wo con* [id number] IMPRESSION: 1. Mild degenerative narrowing RIGHT hip. No acute fractures. No bone marrow e anton. 2. Partially visualized edema in the RIGHT paraspinal musculature at the edge of the field of imaging likely inflammatory or posttraumatic
== END 2024-05-15 08:02 | disposition home or self-care (01) ==
PROVIDERS: PCP Family Medicine; Visit Provider Orthopaedic Surgery
DX: M16.0 Bilateral primary osteoarthritis of hip (principal); K40.90 Unilateral inguinal hernia, without obstruction or gangrene, not specified as recurrent; R93.89 Abnormal findings on diagnostic imaging of other specified body structures
CPT/HCPCS: 73721

== ENCOUNTER → 2024-05-23 08:11 | Outpatient (BNVA) | payer MEDICAID, SELFPAY ==
[2023-08-23 11:55] VITALS: BP 118/64; BMI 29.5
== END ==
PROVIDERS: Family Provider Family Medicine; PCP Family Medicine; Visit Provider Orthopaedic Surgery
DX: Z09 Encounter for follow-up examination after completed treatment for conditions other than malignant neoplasm (principal)
CPT/HCPCS: 99213

== ENCOUNTER 2024-06-22 20:49 | Emergency (ER) | payer MEDICAID, SELFPAY ==
[2023-08-23 11:55] VITALS: BP 118/64; BMI 29.5
[2024-06-22 20:57] VITALS: BP 138/75; PULSE 93; RESP 16; TEMP 36.8; O2SAT 96; BMI 31.4
[2024-06-22 21:41] VITALS: BP 132/75; PULSE 94; RESP 16; O2SAT 95
--- NOTE | 2024-06-22 21:47 | XRR_ITS ---
PROCEDURE INFORMATION: Exam: XR Left Shoulder Exam date and time: 06/22/2024 9:56 PM Age: 53 years old Clinical indication: Injury or trauma; Fall; Blunt trauma (contusions or hematomas); Shoulder; Left TECHNIQUE: Imaging protocol: Radiologic exam of the left shoulder. Views: 2 or more views. COMPARISON: CR (UP EX, ) 06/22/2024 9:56 PM FINDINGS: Bones/joints: Post ACDF of the lower cervical spine. Soft tissues: Normal. XR/XR shoulder LT min 2V* [id number] IMPRESSION: No acute fracture or dislocation.
--- NOTE | 2024-06-22 21:47 | XRR_ITS ---
PROCEDURE INFORMATION: Exam: XR Left Elbow Exam date and time: 06/22/2024 9:56 PM Age: 53 years old Clinical indication: Injury or trauma; Fall; Blunt trauma (contusions or hematomas); Elbow; Left TECHNIQUE: Imaging protocol: Radiologic exam of the left elbow. Views: 3 or more views. COMPARISON: CR (CHEST, ) 06/22/2024 9:56 PM FINDINGS: Bones/joints: Nondisplaced fracture of the radial head. There is a moderate elbow joint effusion. Traction changes of the lateral humeral epicondyle. Soft tissues: There is soft tissue swelling. XR/XR elbow LT min 3V* [id number] IMPRESSION: Nondisplaced fracture of the radial head with moderate elbow joint effusion.
[2024-06-22 22:13] VITALS: RESP 16; O2SAT 97
[2024-06-22] MEDS: ondansetron hcl ODT 4 mg Tab PO (22:13)
[2024-06-22] MEDS: morphine 4 mg/mL SDV 1 mL 8 MG IM (22:13)
[2024-06-22 22:16] VITALS: BP 126/65; PULSE 87; RESP 18; O2SAT 95
--- NOTE | 2024-06-22 23:25 | ED_ITS ---
HPI - Fall General: Chief Complaint: Fall Stated Complaint: fall left arm, leg side Time Seen by Provider: 06/22/24 21:38 History of Present Illness: This patient is a 53-year-old white male who states he fell off steps tonight and landed on his left side. He is complaining of left shoulder pain and left elbow pain. Related Data Previous Rx's ?Medication ?Instructions ?Recorded TENS #1 ea 03/02/22 sildenafil (pulm.hypertension) 20 40 mg (2 x 20 mg) PO ONCE #30 tabs 02/22/23 mg tablet albuterol sulfate 90 mcg/actuation 90 mcg inhalation D AILY #8.5 grams 04/25/24 aerosol inhaler (Ventolin HFA) amlodipine 10 mg tablet 10 mg PO DAILY 90 days #90 t abs 04/25/24 atorvastatin 10 mg tablet 10 mg PO DAILY 90 days #90 t abs 04/25/24 budesonide-formoterol HFA 160 2 puff inhalation BID #1 0.2 grams 04/25/24 mcg-4.5 mcg/actuation aerosol inhaler (Symbicort) fenofibrate nanocrystallized 145 145 mg PO DAILY 90 da ys #90 tabs 04/25/24 mg tablet gabapentin 800 mg tablet See Rx Instructions .Route 0 04/25/24 .COMPLEX #90 tabs lisinopril 10 mg tablet 10 mg PO DAILY 90 days #90 t abs 04/25/24 lisinopril 20 See Rx Instructions .Route 0 04/25/24 mg-hydrochlorothiazide 25 mg tablet .COMPLEX 90 days # 90 tabs meloxicam 15 mg tablet See Rx Instructions .Route 0 04/25/24 .COMPLEX #90 tabs metformin 500 mg tablet,extended 500 mg PO QDAY 90 day s #90 tabs 04/25/24 release 24 hr omeprazole 40 mg capsule,delayed 40 mg PO DAILY 90 day s #90 caps 04/25/24 release tiotropium bromide 18 mcg capsule See Rx Instructions .Route 04/25/24 with inhalation device (Spiriva .COMPLEX #30 caps with HandiHaler) prednisone 20 mg tablet 20 mg PO DAILY 7 days #15 ta bs 05/09/24 duloxetine 60 mg capsule,delayed 60 mg PO BID #60 caps 06/19/24 release escitalopram oxalate 10 mg tablet 10 mg PO DAILY #30 t abs 06/19/24 quetiapine 100 mg tablet 100 mg PO BEDTIME #60 tabs 0 06/19/24 quetiapine 25 mg tablet 25 mg PO TID PRN anxiety #90 tabs 06/19/24 tramadol 37.5 mg-acetaminophen 325 1 tab PO Q6H PRN pa in #30 tabs 06/22/24 mg tablet Allergies Allergy/AdvReac Type Severity Reaction Status Date / Time acetaminophen (From Lortab) Allergy ALGY-Hives Verified 06/19/24 10:56 cyclobenzaprine (From Allergy Unknown Verified 06/19/24 10:56 Flexeril) hydrocodone (From Lortab) Allergy ALGY-Hives Verified 06/19/24 10:56 povidone-iodine (From Allergy Unknown Verified 06/19/24 10:56 Betadine) soap (From Betadine) Allergy Unknown Verified 06/19/24 10:56 Review of Systems General: Reports: 10 or more systems reviewed and unremarkable except in HPI and below Musc: Reports: extremity pain (Left shoulder and left elbow) PFSH ED PFSH: Medical History On combination antipsychotic drug therapy Hepatic steatosis Psychiatric care Umbilical hernia, incarcerated Generalized anxiety disorder Major depressive disorder, recurrent, moderate Prediabetes Essential hypertension Anxiety and depression DDD (degenerative disc disease), cervical GERD (gastroesophageal reflux disease) COPD (chronic obstructive pulmonary disease) Erectile dysfunction Surgical History H/O cataract extraction History of neck surgery H/O knee surgery Family History Other CAD (coronary artery disease) Social History Smoking and tobacco/nicotine status: former use of tobacco/nicotine Alcohol intake: current Alcohol intake frequency: 0-2 Drinks per Day Alcohol type: beer Substance/Drug Use: current Substance/Drug use frequency: daily Physical Exam Const: COMMON NORMALS: no acute distress, patient oriented x3 and no limitations GENERAL APPEARANCE: cooperative and comfortable HENMT: COMMON NORMALS: normocephalic, atraumatic, Normal nasal mucous membranes and turbinates present, moist oral mucous membranes and oropharynx normal HEAD & SCALP: normal to inspection, normocephalic and atraumatic FACE & SINUS: normal facial exam NOSE: Normal nasal mucous membranes and turbinates present Eye: COMMON NORMALS: Equal, round and reactive pupils present, EOMs intact bilaterally and conjunctivae normal GENERAL EYE: appearance normal, both eyes and all related structures CONJUNCTIVA: Yes conjunctivae normal PUPIL: Yes Equal, round and reactive pupils present Neck/C-Spine: COMMON NORMALS: supple and no JVD Chest: COMMONS NORMALS: normal inspection of the chest Resp: COMMON NORMALS: normal respiratory effort and clear to auscultation bilaterally AUSCULTATION: clear to auscultation bilaterally Cardio: COMMON NORMALS: no JVD, regular rate, regular rhythm, No gallops present (Cardio), No murmurs present (Cardio) and No rub (Cardio) RATE: regular rate RHYTHM: regular rhythm GI: COMMON NORMALS: Normal to inspection, nondistended, normoactive bowel sounds present, Soft to palpation and non-tender AUSCULTATION: Yes normoactive bowel sounds PALPATION: Yes Soft to palpation : COMMON NORMALS: Yes no CVA tenderness BLADDER/KIDNEY EXAM: Yes no CVA tenderness Back/Pelvis: COMMON NORMALS: no CVA tenderness and thoracic and lumbar spine normal to inspection Extremity: NARRATIVE EXTREMITY EXAM: Painful range of motion of the left shoulder and left elbow. No gross deformities. Normal neurovascular exam left upper extremity. Neuro: COMMON NORMALS: patient oriented x3 and CN's II-XII intact bilaterally Psych: COMMON NORMALS: mental status grossly normal, Normal thought process present and cooperative THOUGHT PROCESS: Normal thought process present Skin: COMMON NORMALS: no rashes or lesions noted, turgor normal and no jaundice GENERAL SKIN EXAM: no rashes or lesions noted and turgor normal Course Vital Signs: Vital signs: Vital Signs Temperature 98.2 F 06/22/24 20:57 Pulse Rate 87 06/22/24 22:16 Respiratory Rate 18 06/22/24 22:16 Blood Pressure 126/65 06/22/24 22:16 Pulse Oximetry 95 06/22/24 22:16 Oxygen Delivery Me thod Room Air 06/22/24 22:16 MDM - Fall Medical Decision Making X-rays of the left shoulder were normal. X-rays of the left elbow reveal a nondisplaced fracture of the radial head. Patient was given injections of morphine for his pain in the emergency department. He was placed in a posterior splint. I did prescribe tramadol for home use. Recommended he follow-up with orthopedics within 1 week for further evaluation and recommendations. He was discharged in stable condition. Lab Data Radiology Impressions Elbow X-Ray 06/22/24 21:47 IMPRESSION: Nondisplaced fracture of the radial head with moderate elbow joint effusion. Shoulder X-Ray 06/22/24 21:47 IMPRESSION: No acute fracture or dislocation. All radiology interpretation(s) finalized by discharge Discharge Plan Discharge Patient Disposition: Home Clinical Impression: Closed fracture of radial head Qualifiers: Encounter type: initial encounter Fracture alignment: nondisplaced Laterality: left Qualified Code(s): S52.125A - Nondisplaced fracture of head of left radius, initial encounter for closed fracture Condition: Stable Prescriptions: New tramadol-acetaminophen 37.5-325 mg tablet 1 tab PO Q6H PRN (Reason: pain) Qty: 30 0RF No Action (DME) TENS See Rx Instructions .Route .MEDSUPPLY Qty: 1 0RF Rx Instructions: As directed albuterol sulfate [Ventolin HFA] 90 mcg/actuation HFA aerosol inhaler 90 mcg inhalation DAILY Qty: 8.5 5RF Rx Instructions: 2 PUFF(S) EVERY 6 HOURS NEEDED FOR SHORTNESS OF BREATH/WHEEZING amlodipine 10 mg tablet 10 mg PO DAILY 90 Days Qty: 90 2RF Rx Instructions: TAKE ONE TABLET BY MOUTH EVERY DAY atorvastatin 10 mg tablet 10 mg PO DAILY 90 Days Qty: 90 2RF Rx Instructions: TAKE ONE TABLET BY MOUTH DAILY budesonide-formoterol [Symbicort] 160-4.5 mcg/actuation HFA aerosol inhaler 2 puff INHALATION BID Qty: 10.2 6RF fenofibrate nanocrystallized 145 mg tablet 145 mg PO DAILY 90 Days Qty: 90 2RF Rx Instructions: TAKE ONE TABLET BY MOUTH DAILY lisinopril-hydrochlorothiazide 20-25 mg tablet See Rx Instructions .ROUTE .COMPLEX 90 Days Qty: 90 2RF Dose Instruction: TAKE ONE TABLET BY MOUTH EVERY DAY Rx Instructions: TAKE ONE TABLET BY MOUTH EVERY DAY lisinopril 10 mg tablet 10 mg PO DAILY 90 Days Qty: 90 2RF gabapentin 800 mg tablet See Rx Instructions .ROUTE .COMPLEX Qty: 90 6RF Dose Instruction: TAKE ONE TABLET BY MOUTH THREE TIMES A DAY Rx Instructions: TAKE ONE TABLET BY MOUTH THREE TIMES A DAY metformin 500 mg tablet extended release 24 hr 500 mg PO QDAY 90 Days Qty: 90 2RF omeprazole 40 mg capsule,delayed release(DR/EC) 40 mg PO DAILY 90 Days Qty: 90 2RF Spiriva with HandiHaler 18 mcg capsule, w/inhalation device See Rx Instructions .ROUTE .COMPLEX Qty: 30 6RF Dose Instruction: INHALE 1 CAPSULE BY MOUTH EVERY DAY Rx Instructions: INHALE 1 CAPSULE BY MOUTH EVERY DAY meloxicam 15 mg tablet See Rx Instructions .ROUTE .COMPLEX Qty: 90 2RF Dose Instruction: TAKE ONE TABLET BY MOUTH DAILY Rx Instructions: TAKE ONE TABLET BY MOUTH DAILY WITH FOOD prednisone 20 mg tablet 20 mg PO DAILY 7 Days Qty: 15 0RF Rx Instructions: 60mg daily for 3 days 40mg daily for 2 days 20mg daily for 2 days quetiapine 25 mg tablet 25 mg PO TID PRN (Reason: anxiety) Qty: 90 2RF Rx Instructions: TAKE 1 TABLET BY MOUTH THREE TIMES DAILY NEEDED FOR ANXIETY quetiapine 100 mg tablet 100 mg PO BEDTIME Qty: 60 2RF Rx Instructions: TAKE TWO TABLETS (200 MG)BY MOUTH DAILY AT BEDTIME escitalopram oxalate 10 mg tablet 10 mg PO DAILY Qty: 30 2RF Rx Instructions: TAKE ONE TABLET BY MOUTH DAILY duloxetine 60 mg capsule,delayed release(DR/EC) 60 mg PO BID Qty: 60 2RF Rx Instructions: TAKE ONE CAPSULE BY MOUTH TWICE A DAY sildenafil (pulm.hypertension) 20 mg tablet 40 mg PO ONCE Qty: 30 3RF Rx Instructions: 1 HOUR BEFORE SEXUAL ACTIVITY Discharge Orders: Discharge ED (Routine); Ordered 06/22/24 Ordered By: Woody Recio Referrals: Sailaja Eddy MD [Primary Care Provider] - Patient Instructions: Elbow Fracture (DC), Opioid Safety, Pain Management Activity Restrictions/Additional Instructions: Follow-up with orthopedics within 1 week for further evaluation recommendations. Print Language: Kyrgyz Coding Level of Care Code ED Lens Inserter for Danielle Hackett
[2024-06-22 23:50] VITALS: BP 119/73; PULSE 96; RESP 16; O2SAT 95
[2024-06-22 23:52] VITALS: RESP 16; O2SAT 92
[2024-06-22] MEDS: morphine 4 mg/mL SDV 1 mL IM (23:52)
[2024-06-23 00:48] VITALS: BP 139/83; PULSE 91; RESP 16; O2SAT 94
== END 2024-06-23 00:30 | disposition home or self-care (01) ==
PROVIDERS: Emergency Provider Emergency Medicine; PCP Family Medicine
DX: S52.125A Nondisplaced fracture of head of left radius, initial encounter for closed fracture (principal); M25.512 Pain in left shoulder; Z79.84 Long term (current) use of oral hypoglycemic drugs; Z87.891 Personal history of nicotine dependence; J44.9 Chronic obstructive pulmonary disease, unspecified; I10 Essential (primary) hypertension; W10.9XXA Fall (on) (from) unspecified stairs and steps, initial encounter
CPT/HCPCS: 29125; 73030; 73080; 96372; 99284; J2270; Q0162

== ENCOUNTER → 2024-06-27 07:53 | Outpatient (BNVA) | payer MEDICAID, SELFPAY ==
[2023-08-23 11:55] VITALS: BP 118/64; BMI 29.5
== END ==
PROVIDERS: PCP Family Medicine; Visit Provider Student in an Organized Health Care Education/Training Program
DX: M16.11 Unilateral primary osteoarthritis, right hip (principal)
CPT/HCPCS: 99214

== ENCOUNTER → 2024-06-30 10:30 | Outpatient (BNVA) | payer MEDICAID, SELFPAY ==
[2023-08-23 11:55] VITALS: BP 118/64; BMI 29.5
== END ==
PROVIDERS: PCP Family Medicine; Visit Provider Student in an Organized Health Care Education/Training Program
DX: S52.125A Nondisplaced fracture of head of left radius, initial encounter for closed fracture (principal); W19.XXXA Unspecified fall, initial encounter
CPT/HCPCS: 73080; 99214

== ENCOUNTER → 2024-07-25 09:40 | Outpatient (BNVA) | payer MEDICAID, SELFPAY ==
[2023-08-23 11:55] VITALS: BP 118/64; BMI 29.5
== END ==
PROVIDERS: PCP Family Medicine; Visit Provider Family Medicine
DX: I10 Essential (primary) hypertension (principal); E78.5 Hyperlipidemia, unspecified; R73.03 Prediabetes; H54.3 Unqualified visual loss, both eyes; J43.1 Panlobular emphysema; J44.9 Chronic obstructive pulmonary disease, unspecified
CPT/HCPCS: 80053; 80061; 83036; 85025; 85651; 86140

== ENCOUNTER 2024-07-28 09:40 | Outpatient (CLI) | payer MEDICAID, SELFPAY ==
[2023-08-23 11:55] VITALS: BP 118/64; BMI 29.5
--- NOTE | 2024-07-28 10:00 | MR_ITS ---
WS: [id number] MRI HEAD WITH CONTRAST TECHNIQUE: Sagittal T1, T2 axial, T2 axial FLAIR, axial susceptibility weighted imaging, axial diffusion weighted images, and coronal T2 images were obtained. Pre and post-T1 axial and post T1 coronal images. ADC and FSPGR images. CLINICAL INFORMATION: H54.3 - Unqualified visual loss, both eyes COMPARISON: None. FINDINGS: Minimal small vessel changes. Moderate parenchymal volume loss. No hemosiderin on the susceptibility weighted images. Normal optic chiasm and pituitary infundibulum. Mild symmetric atrophy temporal lobes and hippocampal formations. No evidence of restricted diffusion to suggest acute ischemia. No abnormal gadolinium enhancement. Normal dural venous sinuses. Normal posterior fossa. Normal vascular flow voids at the skull base. No extra-axial fluid collections. No evidence of mass or mass effect. Paranasal sinuses and mastoid air cells are well aerated. No abnormal gadolinium enhancement. MR/MR head wo/w con [id number] IMPRESSION: 1. No evidence of restricted diffusion to suggest acute ischemia. 2. Minimal small vessel changes. Mild parenchymal volume loss. 3. No hemosiderin on susceptibility weighted images. 4. Normal optic chiasm and pituitary infundibulum. 5. No abnormal gadolinium enhancement.
[2024-07-28] MEDS: gadobenate dimeglumine 20 mL vial IV (10:44)
--- NOTE | 2024-07-28 10:45 | MR_ITS ---
WS: [id number] MRA HEAD TECHNIQUE: Axial 3-D TOF images obtained with axial images and axial, sagittal, and coronal 2-D reformatted images. CLINICAL INFORMATION: H54.3 - Unqualified visual loss, both eyes COMPARISON: None. FINDINGS: Basilar artery is patent. Normal vascularity to the PELT GRADER territory bilaterally. Patent RIGHT posterior communicating artery. Both ICAs are patent at the skull base. Normal vascularity to the JOB and MCA territories bilaterally. No evidence of proximal flow-limiting stenosis. MR/MR angio head con [id number] IMPRESSION: Unremarkable intracranial MRA
== END 2024-07-28 09:41 | disposition home or self-care (01) ==
PROVIDERS: PCP Family Medicine; Visit Provider Family Medicine
DX: H54.3 Unqualified visual loss, both eyes (principal); R93.0 Abnormal findings on diagnostic imaging of skull and head, not elsewhere classified; G31.89 Other specified degenerative diseases of nervous system
CPT/HCPCS: 70544; 70553

== ENCOUNTER → 2024-08-09 10:58 | Outpatient (BNVA) | payer SELFPAY ==
[2024-07-28 14:57] VITALS: BP 144/85; BMI 31.5
== END ==
PROVIDERS: PCP Family Medicine; Visit Provider Student in an Organized Health Care Education/Training Program
DX: S52.122A Displaced fracture of head of left radius, initial encounter for closed fracture (principal); S52.125A Nondisplaced fracture of head of left radius, initial encounter for closed fracture; S49.92XA Unspecified injury of left shoulder and upper arm, initial encounter; M75.42 Impingement syndrome of left shoulder; W17.89XA Other fall from one level to another, initial encounter
CPT/HCPCS: 73030; 73080

== ENCOUNTER → 2024-08-25 08:59 | Outpatient (BNVA) | payer MEDICAID, SELFPAY ==
[2024-07-28 14:57] VITALS: BP 144/85; BMI 31.5
== END ==
PROVIDERS: PCP Family Medicine; Visit Provider Student in an Organized Health Care Education/Training Program
DX: M16.11 Unilateral primary osteoarthritis, right hip (principal)
CPT/HCPCS: 20610; 77002; J3301; J9999

== ENCOUNTER 2024-08-28 09:54 | Outpatient (CLI) | payer MEDICAID, SELFPAY ==
[2024-07-28 14:57] VITALS: BP 144/85; BMI 31.5
--- NOTE | 2024-08-28 10:15 | MR_ITS ---
WS: [id number] MRI LEFT SHOULDER HISTORY: left shoulder injury/fall COMPARISON: 08/09/2024 TECHNIQUE: Multiplanar sequences of the shoulder joint are submitted. Severe AC joint arthritis. Hypertrophic osteophytic formation involving the distal clavicle. There is a small well-circumscribed intra-articular body measuring 3 mm in the AC joint. Increased T2 signal through the AC joint and extending along the subacromial and subdeltoid bursa. No os acromion. Normal position of the biceps tendon. There is increased T2 signal and thickening of the biceps tendon through the rotator cuff interval. No tear. Slightly high riding humeral head with respect to the glenoid. Abnormal signal and shape of the posterior labrum and glenoid complex. There is a focal tear of the labrum with high suspicion for osseous avulsion of the glenoid also. Moderate atrophy of the supraspinatus muscle. Edema involving the supraspinatus muscle and tendon. The edema is predominantly superficial along the surface of the tendon and most significant at the level of the AC joint and arthropathy. Intermediate signal throughout the tendon. No full-thickness tear is identified. This is most likely contusion injury and tendinopathy. Very small superficial bursal surface tear at the level of the AC joint cannot be excluded. There is focal fluid present. No acute fractures identified. There is a small amount of fluid associated with the coracoid process. No marrow edema. Minimal avulsion injury of the coracohumeral ligament should be considered. MR/MR shoulder LT wo con* [id number] IMPRESSION: 1. Severe AC joint arthritis. There is increased fluid and edema at the articu lar surfaces along with surrounding fluid suggesting acute injury at the AC thierry nt. 2. Significant amount of edema in the supraspinatus tendon at the level of the AC joint with tendinopathy. Probably all related to posttraumatic injury. No f ull-thickness tear. Very slight small superficial bursal surface tear of the coleman praspinatus tendon is not excluded. There is fluid along the bursal surface of the supraspinatus tendon at the level of the AC joint injury. 3. Small intra-articular loose body within the AC joint. 4. Increased T2 signal thickening of the biceps tendon through the bicipital g roove. No tear. 5. Highly suspicious for prior osseous avulsion injury of the posterior labrum and glenoid.
== END 2024-08-28 09:55 | disposition home or self-care (01) ==
PROVIDERS: PCP Family Medicine; Visit Provider Student in an Organized Health Care Education/Training Program
DX: S43.402A Unspecified sprain of left shoulder joint, initial encounter (principal); M75.42 Impingement syndrome of left shoulder; M19.012 Primary osteoarthritis, left shoulder; R93.7 Abnormal findings on diagnostic imaging of other parts of musculoskeletal system; M89.38 Hypertrophy of bone, other site; M25.712 Osteophyte, left shoulder; W19.XXXA Unspecified fall, initial encounter; M62.512 Muscle wasting and atrophy, not elsewhere classified, left shoulder; R60.0 Localized edema
CPT/HCPCS: 73221

== ENCOUNTER → 2024-09-14 10:39 | Outpatient (BNVA) | payer MEDICAID, SELFPAY ==
[2024-07-28 14:57] VITALS: BP 144/85; BMI 31.5
== END ==
PROVIDERS: PCP Family Medicine; Visit Provider Internal Medicine
DX: I49.8 Other specified cardiac arrhythmias (principal); R00.0 Tachycardia, unspecified; I49.3 Ventricular premature depolarization; I49.1 Atrial premature depolarization
CPT/HCPCS: 93270

== ENCOUNTER 2024-09-19 08:46 | Outpatient (CLI) | payer MEDICAID, SELFPAY ==
[2024-07-28 14:57] VITALS: BP 144/85; BMI 31.5
--- NOTE | 2024-09-19 09:00 | CT_ITS ---
WS: [id number] LDCT LUNG CANCER SCREENING HISTORY: Z12.2 - Encounter for screening for malignant neoplasm of... TECHNIQUE: Axial imaging performed from the apices to 1 cm below the costophrenic angles. Coronal and sagittal reformats are submitted with axial MIP series. All CT scans at [facility] use at least one of these dose optimization techniques: automated exposure control; mA and/or kV adjustment per patient size (includes targeted exams where dose is matched to clinical indication); or iterative reconstruction. DLP: 94.30 mGy.cm DIvol: Mean CTDIvol: 1.70 (mGy) COMPARISON: Chest radiograph 01/18/2017 Diagnostic quality: Satisfactory Lungs: Patient has known numerous bilateral subcentimeter pulmonary nodules which are previously described. These nodules have decreased in size or now contain calcification. There is a subpleural 5 mm nodule in the RIGHT middle lobe which is new. There are no new or increasing nodules of any concern. No pneumonia. Heart: Normal size heart with no pericardial effusion.. Other findings: No adenopathy. Normal aorta and pulmonary artery. Hepatic steatosis no adrenal mass. No destructive bone lesions. CT/CT lung screening [id number] IMPRESSION: LUNG-RADS: 2-Benign Appearance or Behavior FOLLOW UP: 12 Month: Continue annual screening with LDCT OTHER FINDINGS (S MODIFIER): None.
== END 2024-09-19 08:47 | disposition home or self-care (01) ==
PROVIDERS: PCP Family Medicine; Visit Provider Family Medicine
DX: Z12.2 Encounter for screening for malignant neoplasm of respiratory organs (principal); F17.210 Nicotine dependence, cigarettes, uncomplicated; R91.8 Other nonspecific abnormal finding of lung field; K76.0 Fatty (change of) liver, not elsewhere classified
CPT/HCPCS: 71271

== ENCOUNTER 2024-10-04 11:02 | Emergency (ER) | payer MEDICAID, SELFPAY ==
[2024-07-28 14:57] VITALS: BP 144/85; BMI 31.5
[2024-10-04 11:13] VITALS: BP 111/68; PULSE 104; RESP 16; TEMP 36.6; O2SAT 97; BMI 29.4
--- NOTE | 2024-10-04 11:25 | ECG_ITS ---
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
--- NOTE | 2024-10-04 11:26 | XR_ITS ---
WS: [id number] Exam: XR chest 1V portable [id number] Date/Time of Exam: 10/04/2024 11:26 AM Reason For Exam: weakness Comparison 01/02/2014. Lungs are fully expanded and clear. Normal cardiomediastinal silhouette and regional bony elements. No pleural effusion. XR/XR chest 1V portable [id number] IMPRESSION: 1. Negative chest.
--- OUTSIDE RECORDS SUMMARY | 2024-10-04 11:53 | XMS_ITS | Encounter Summary ---
Author Organization [facility] Address [address] [place] [address] Care Team Providers Care Flap Lining Binder Name Role Phone Jeb Parson DO Primary Care Provider [phone]- [phone] Encounter Details Date Type Department Care Team (Latest Contact Info) Description 06/15/2005 Outpatient Historical [facility] [address] [place] [address] [place] [address] João Blandon MD [address] [place] [id number] Pain in Soft Tissues of Limb (Primary Dx) Social History Tobacco Use Types Packs/Day Years Used Date Smoking Tobacco: Never Assessed Sex and Gender Information Value Date Recorded Sex Assigned at Not on file 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
--- OUTSIDE RECORDS SUMMARY | 2024-10-04 11:53 | XMS_ITS | Encounter Summary ---
Author Organization [facility] Address [address] [place] [address] Care Team Providers Care Occupational Physician Name Role Phone Jeb Parson DO Primary Care Provider [phone]- [phone] Encounter Details Date Type Department Care Team (Late st Contact Info) Description 12/07/2005 Outpatient Historical [facility] [address] [place] [address] [place] [address] João Blandon MD [address] [place] [address] Social History Tobacco Use Types Packs/Day Years Used Date Smoking Tobacco: Never Assessed Sex and Gender Information Value Date Recorded Sex Assigned at Not on file 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
--- OUTSIDE RECORDS SUMMARY | 2024-10-04 11:53 | XMS_ITS | Encounter Summary ---
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
--- OUTSIDE RECORDS SUMMARY | 2024-10-04 11:53 | XMS_ITS | Encounter Summary ---
Author Organization [facility] Address [address] [place] [address] Care Team Providers Care Hammersmith Helper Name Role Phone Jeb Parson DO Primary Care Provider +1- [phone] Encounter Details Date Type Department Care Team (Latest Contact Info) Description 06/15/2005 Outpatient Historical [facility] [address] [place] [address] [place] [address] João Blandon MD [address] [place] [phone] Other Specified Pre-Operative Examination (Primary Dx) Social History Tobacco Use Types Packs/Day Years Used Date Smoking Tobacco: Never Assessed Sex and Gender Information Value Date Recorded Sex Assigned at Not on file Legal Sex Male 3:10 AM STICKER HAND Gender Identity Not on file Sexual Orientation Not on file documented as of this encounter Plan of Treatment Not on file documented as of this encounter Procedures Procedure Name Priority Date/Time Associated Diagnosis Comments CBC WITH DIFFERENTIAL Routine 06/15/2005 12:04 PM STICKER HAND documented in this encounter Results * (ABNORMAL) CBC WITH DIFFERENTIAL (06/15/2005 12:04 PM STICKER HAND) WBC 7.0 4.5 - 11.0 K/ul INTERFACE SYSTEM RBC 5.19 4.60 - 6.20 Mil/ul INTERFACE SYSTEM HEMOGLOBIN 15.7 14.0 - 18.0 g/dL INTERFACE SYSTEM HEMATOCRIT 46.4 41.0 - 53.0 % INTERFACE SYSTEM MCV 89.4 84.0 - 103.0 Fl INTERFACE SYSTEM MCH 30.3 27.0 - 34.0 pg INTERFACE SYSTEM MCHC 33.8 30.0 - 35.0 g/dL INTERFACE SYSTEM RDW 12.9 11.0 - 14.5 % INTERFACE SYSTEM PLATELETS 369 140 - 440 K/ul INTERFACE SYSTEM MPV 9.3 8.9 - 12.8 Fl INTERFACE SYSTEM NEUTROPHILS 60.7 42.2 - 75.2 % INTERFACE SYSTEM LYMPHOCYTES 23.0(L) 24.0 - 44.0 % INTERFACE SYSTEM MONOCYTES 8.8 2.0 - 10.0 % INTERFACE SYSTEM EOSINOPHILS 5.5 0.0 - 7.0 % INTERFACE SYSTEM BASOPHILS 2.0(H) 0.0 - 1.0 % INTERFACE SYSTEM NEUTROPHIL ABSOLUTE 4.3 2.0 - 8.0 K/uL INTERFACE SYSTEM LYMPHOCYTE ABSOLUTE 1.6 1.2 - 4.0 K/ul INTERFACE SYSTEM MONOCYTE ABSOLUTE 0.6 0.1 - 0.6 K/ul INTERFACE SYSTEM EOSINOPHIL ABSOLUTE 0.4 0.0 - 0.7 K/ul INTERFACE SYSTEM BASOPHILS ABSOLUTE 0.1 0.0 - 0.2 K/ul INTERFACE SYSTEM 06/15/2005 12:0 4 PM STICKER HAND João Blandon MD HEMATOLOGY ORDERABLES Final Result INTERFACE SYSTEM Refer to clinic/hospital department documented in this encounter Visit Diagnoses Diagnosis Other specified pre-operative examination- Primary documented in this encounter Care Teams Hammersmith Helper Relationship Specialty Start Date End Date Jeb Parson DO PCP - General Family Practice 05/11/14 documented as of this encounter
--- OUTSIDE RECORDS SUMMARY | 2024-10-04 11:53 | XMS_ITS | Encounter Summary ---
Author Organization [facility] Address [address] [place] [address] Care Team Providers Care Editorial Specialist Name Role Phone Jeb Parson DO Primary Care Provider +1- [phone] Encounter Details Date Type Department Care Team (Late st Contact Info) Description 06/29/2005 Emergency [facility] Emergency Department [address] [place] [address] Michelle Montana MD [address] [place] [address] Rash and Other Nonspecific Skin Eruption (Primary Dx) Social History Tobacco Use Types Packs/Day Years Used Date Smoking Tobacco: Never Assessed Sex and Gender Information Value Date Recorded Sex Assigned at Not on file Legal Sex Male 3:10 AM PROJECT ASSOCIATE Gender Identity Not on file Sexual Orientation Not on file documented as of this encounter Plan of Treatment Not on file documented as of this encounter Procedures Procedure Name Priority Date/Time Associated Diagnosis Comments XR CERVICAL SPINE 2 OR 3 VIEWS Routine 06/29/2005 9:19 AM PROJECT ASSOCIATE documented in this encounter Results * XR CERVICAL SPINE 2 OR 3 VW (06/29/2005 9:19 AM PROJECT ASSOCIATE) Anatomical Region Laterality Modality Spine Other 06/29/2005 9:19 AM PROJECT ASSOCIATE Narrative 06/29/2005 9:19 AM PROJECT ASSOCIATE LIMITED CERVICAL SPINE STUDY DATE OF EXAMINATION: 06/29/2005 HISTORY: Neck pain. ACDF at C5-C6 without apparent hardware complication. Interbody bone plug at the level of the spine fused. Vertebral bodies intact and without subluxation. Disc spaces fairly well maintained. Open-mouth odontoid view with the appearance of mild medial displacement of the right lateral mass of C1. Prevertebral soft tissues unremarkable. IMPRESSION: Unremarkable appearing ACDF of C5-C6. The appearance of mild subluxation of the right lateral mass of C1 vs rotation artifact. Further correlation with CT is recommended as clinically warranted. ekp / Dictated By: Nishant Tobar M.D. Electronically Signed By: Nishant Tobar M.D. Date Signed: 06/29/05 Procedure Note 03/01/2009 LIMITED CERVICAL SPINE STUDY DATE OF EXAMINATION: 06/29/2005 HISTORY: Neck pain. ACDF at C5-C6 without apparent hardware complication. Interbody bone plugat the level of the spine fused. Vertebral bodies intact and without subluxation. Disc spacesfairly well maintained. Open-mouth odontoid view with the appearance of mild medial displacement of theright lateral mass of C1. Prevertebral soft tissues unremarkable. IMPRESSION: Unremarkable appearing ACDF of C5-C6. The appearance of mild subluxationof the right lateral mass of C1 vs rotation artifact. Further correlation with CT is recommended asclinically warranted. ekp / Dictated By: Nishant Tobar M.D. Electronically Signed By: Nishant Tobar M.D. Date Signed: 06/29/05 Michelle Montana MD DIAGNOSTIC IMAGING ORDERAB LES Final Result documented in this encounter Visit Diagnoses Diagnosis Rash and other nonspecific skin eruption- Primary documented in this encounter Care Teams Editorial Specialist Relationship Specialty Start Date End Date Jeb Parson DO PCP - General Family Practice 05/11/14 documented as of this encounter
--- OUTSIDE RECORDS SUMMARY | 2024-10-04 11:53 | XMS_ITS | Encounter Summary ---
Author Organization [facility] Address [address] [place] [address] Care Team Providers Care Assistant Professor Of English Name Role Phone Jeb Parson DO Primary Care Provider +1- [phone] Encounter Details Date Type Department Care Team (Late st Contact Info) Description 10/07/2005 Outpatient Historical [facility] Social History Tobacco Use Types Packs/Day Years Used Date Smoking Tobacco: Never Assessed Sex and Gender Information Value Date Recorded Sex Assigned at Not on file Legal Sex Male 3:10 AM SOFTWARE TEST MANAGER Gender Identity Not on file Sexual Orientation Not on file documented as of this encounter Plan of Treatment Not on file documented as of this encounter Visit Diagnoses Not on filedocumented in this encounter Care Teams Assistant Professor Of English Relationship Specialty Start Date End Date Jeb Parson DO PCP - General Family Practice 05/11/14 documented as of this encounter
--- OUTSIDE RECORDS SUMMARY | 2024-10-04 11:53 | XMS_ITS | Encounter Summary ---
Author Organization [facility] Address [address] [place] [address] Care Team Providers Care Sleeve Wheel Maker Name Role Phone Jeb Parson DO Primary Care Provider +1- [phone] Encounter Details Date Type Department Care Team (Latest Contact Info) Description 08/17/2005 Outpatient Historical [facility] [address] [place] [address] João Blandon MD [address] [place] [phone] Aftercare Following Surgery of the Musculoskeletal System, NEC (Primary Dx) Social History Tobacco Use Types Packs/Day Years Used Date Smoking Tobacco: Never Assessed Sex and Gender Information Value Date Recorded Sex Assigned at Not on file Legal Sex Male 3:10 AM NURSING EDUCATOR Gender Identity Not on file Sexual Orientation Not on file documented as of this encounter Plan of Treatment Not on file documented as of this encounter Visit Diagnoses Diagnosis Aftercare following surgery of the musculoskeletal system, NEC- Primary documented in this encounter Care Teams Sleeve Wheel Maker Relationship Specialty Start Date End Date Jeb Parson DO PCP - General Family Practice 05/11/14 documented as of this encounter
--- OUTSIDE RECORDS SUMMARY | 2024-10-04 11:53 | XMS_ITS | Encounter Summary ---
Author Organization [facility] Address [address] [place] [address] Care Team Providers Care Automotive Consultant Name Role Phone Jeb Parson DO Primary Care Provider +1- [phone] Encounter Details Date Type Department Care Team (Latest Contact Info) Description 04/06/2007 Outpatient Historical [facility] [address] [place] [address] [place] [address] Daphnie Garcia MD [address] [place] [address] Unspecified Backache; Pain in Soft Tissues of Limb Social History Tobacco Use Types Packs/Day Years Used Date Smoking Tobacco: Never Assessed Sex and Gender Information Value Date Recorded Sex Assigned at Not on file Legal Sex Male 3:10 AM PLANNER/SCHEDULER Gender Identity Not on file Sexual Orientation Not on file documented as of this encounter Plan of Treatment Not on file documented as of this encounter Visit Diagnoses Diagnosis Backache, unspecified Pain in limb documented in this encounter Care Teams Automotive Consultant Relationship Specialty Start Date End Date Jeb Parson DO PCP - General Family Practice 05/11/14 documented as of this encounter
--- OUTSIDE RECORDS SUMMARY | 2024-10-04 11:53 | XMS_ITS | Encounter Summary ---
Author Organization [facility] Address [address] [place] [address] Care Team Providers Care Brass Molder Name Role Phone Jeb Parson DO Primary Care Provider +1- [phone] Encounter Details Date Type Department Care Team (Latest Contact Info) Description 02/19/2005 Outpatient Historical [facility] [address] [address] Stefanie Keller MD [address] [place] [address] CERVICALGIA (Primary Dx); Skin sensation disturb Social History Tobacco Use Types Packs/Day Years Used Date Smoking Tobacco: Never Assessed Sex and Gender Information Value Date Recorded Sex Assigned at Not on file Legal Sex Male 3:10 AM BALL HOLDER Gender Identity Not on file Sexual Orientation Not on file documented as of this encounter Plan of Treatment Not on file documented as of this encounter Visit Diagnoses Diagnosis Cervicalgia- Primary Skin sensation disturb Disturbance of skin sensation documented in this encounter Care Teams Brass Molder Relationship Specialty Start Date End Date Jeb Parson DO PCP - General Family Practice 05/11/14 documented as of this encounter
--- OUTSIDE RECORDS SUMMARY | 2024-10-04 11:53 | XMS_ITS | Encounter Summary ---
Author Organization [facility] Address [address] [place] [address] Care Team Providers Care French Instructor Name Role Phone Jeb Parson DO Primary Care Provider +1- [phone] Encounter Details Date Type Department Care Team (Latest Contact Info) Description 10/06/2005 Outpatient Historical [facility] [address] [place] [address] [place] [address] João Blandon MD [address] [place] [phone] Encounter for Occupational Therapy (Primary Dx) Social History Tobacco Use Types Packs/Day Years Used Date Smoking Tobacco: Never Assessed Sex and Gender Information Value Date Recorded Sex Assigned at Not on file Legal Sex Male 3:10 AM MANAGER FOOD SAFETY Gender Identity Not on file Sexual Orientation Not on file documented as of this encounter Plan of Treatment Not on file documented as of this encounter Visit Diagnoses Diagnosis Encounter for occupational therapy- Primary documented in this encounter Care Teams French Instructor Relationship Specialty Start Date End Date Jeb Parson DO PCP - General Family Practice 05/11/14 documented as of this encounter
--- OUTSIDE RECORDS SUMMARY | 2024-10-04 11:53 | XMS_ITS | Encounter Summary ---
Author Organization [facility] Address [address] [place] [address] Care Team Providers Care Wood Die Maker Name Role Phone Jeb Parson DO Primary Care Provider +1- [phone] Encounter Details Date Type Department Care Team (Latest Contact Info) Description 04/17/2005 Outpatient Historical [facility] [address] [place] [address] [place] [address] João Blandon MD [address] [place] [phone] CERVICAL DISC DISPLACMNT (Primary Dx) Social History Tobacco Use Types Packs/Day Years Used Date Smoking Tobacco: Never Assessed Sex and Gender Information Value Date Recorded Sex Assigned at Not on file Legal Sex Male 3:10 AM ASSOCIATE FACULTY Gender Identity Not on file Sexual Orientation Not on file documented as of this encounter Plan of Treatment Not on file documented as of this encounter Visit Diagnoses Diagnosis Displacement of cervical intervertebral disc without myelopathy- Primary documented in this encounter Care Teams Wood Die Maker Relationship Specialty Start Date End Date Jeb Parson DO PCP - General Family Practice 05/11/14 documented as of this encounter
--- OUTSIDE RECORDS SUMMARY | 2024-10-04 11:53 | XMS_ITS | Encounter Summary ---
Author Organization [facility] Address [address] [place] [address] Care Team Providers Care Device Engineer Name Role Phone Jeb Parson DO Primary Care Provider +1- [phone] Encounter Details Date Type Department Care Team (Latest Contact Info) Description 08/13/2005 Outpatient Historical [facility] João Blandon MD [address] [place] [address] Other and Unspecified Disc Disorder of Cervical Region (Primary Dx) Social History Tobacco Use Types Packs/Day Years Used Date Smoking Tobacco: Never Assessed Sex and Gender Information Value Date Recorded Sex Assigned at Not on file Legal Sex Male 3:10 AM FORGING PRESS SETTER UP Gender Identity Not on file Sexual Orientation Not on file documented as of this encounter Plan of Treatment Not on file documented as of this encounter Procedures Procedure Name Priority Date/Time Associated Diagnosis Comments MRI CERVICAL W WO CONTRAST Routine 08/13/2005 12:01 AM CDT documented in this encounter Results * MRI CERVICAL W WO CONTRAST (08/13/2005 12:01 AM CDT) Anatomical Region Laterality Modality Spine Other 08/13/2005 12:0 1 AM CDT Narrative 08/13/2005 12:01 AM CDT MRI CERVICAL SPINE WITH AND WITHOUT CONTRAST DONE ON 08-13-05 HISTORY: Bilateral arm pain, numbness. Multiplanar imaging of the cervical spine was performed with and without IV gadolinium. No comparison studies available. An anterior fusion is noted at C5-6. Alignment is normal. The cervical spine is normal in appearance. C1-2 through C4-5: No significant abnormality. C5-6: There is mild to moderate bilateral neural foraminal narrowing. A small disc bulge is present. C6-7 and C7-T1: No significant abnormality. The post contrast images show no significant abnormal enhancement. IMPRESSION: Anterior fusion at C5-6. A small disc bulge and bilateral neural foraminal narrowing are seen at this level. [facility] 1347 Dictated By: Hernesto Booth M.D. Electronically Signed By: Hernesto Booth M.D. Date Signed: 08/13/05 [facility] Procedure Note 03/01/2009 MRI CERVICAL SPINE WITH AND WITHOUT CONTRAST DONE ON 08-13-05 HISTORY: Bilateral arm pain, numbness. Multiplanar imaging of the cervical spine was performed with and withoutIV gadolinium. No comparison studies available. An anterior fusion is noted at C5-6. Alignment is normal. The cervicalspine is normal in appearance. C1-2 through C4-5: No significant abnormality. C5-6: There is mild to moderate bilateral neural foraminal narrowing. A smalldisc bulge is present. C6-7 and C7-T1: No significant abnormality. The post contrast images show no significant abnormal enhancement. IMPRESSION: Anterior fusion at C5-6. A small disc bulge and bilateral neural foraminalnarrowing are seen at this level. [facility] 8 Dictated By: Hernesto Booth M.D. Electronically Signed By: Hernesto Booth M.D. Date Signed: 08/13/05 [facility] João Blandon MD MR ORDERABLES Final Result documented in this encounter Visit Diagnoses Diagnosis Other and unspecified disc disorder of cervical region- Primary documented in this encounter Care Teams Device Engineer Relationship Specialty Start Date End Date Jeb Parson DO PCP - General Family Practice 05/11/14 documented as of this encounter
--- OUTSIDE RECORDS SUMMARY | 2024-10-04 11:53 | XMS_ITS | Encounter Summary ---
Author Organization [facility] Address [address] [place] [address] Care Team Providers Care Mold Cleaning And Storage Supervisor Name Role Phone Jeb Parson DO Primary Care Provider +1- [phone] Encounter Details Date Type Department Care Team (Late st Contact Info) Description 10/06/2005 Outpatient Historical HIS [facility] Social History Tobacco Use Types Packs/Day Years Used Date Smoking Tobacco: Never Assessed Sex and Gender Information Value Date Recorded Sex Assigned at Not on file Legal Sex Male 3:10 AM ANIMAL HOSPITAL OFFICE SUPERVISOR Gender Identity Not on file Sexual Orientation Not on file documented as of this encounter Plan of Treatment Not on file documented as of this encounter Visit Diagnoses Not on filedocumented in this encounter Care Teams Mold Cleaning And Storage Supervisor Relationship Specialty Start Date End Date Jeb Parson DO PCP - General Family Practice 05/11/14 documented as of this encounter
--- OUTSIDE RECORDS SUMMARY | 2024-10-04 11:53 | XMS_ITS | Encounter Summary ---
Author Organization [facility] Address [address] [place] [address] Care Team Providers Care Bilingual Medical Receptionist Name Role Phone Jeb Parson DO Primary Care Provider +1- [phone] Encounter Details Date Type Department Care Team (Late st Contact Info) Description 01/17/1998 Outpatient Historical [facility] Occupational [facility] [place] [address] [place] [address] Social History Tobacco Use Types Packs/Day Years Used Date Smoking Tobacco: Never Assessed Sex and Gender Information Value Date Recorded Sex Assigned at Not on file Legal Sex Male 3:10 AM MANAGER OF COMMUNITY RELATIONS Gender Identity Not on file Sexual Orientation Not on file documented as of this encounter Plan of Treatment Not on file documented as of this encounter Visit Diagnoses Not on filedocumented in this encounter Care Teams Bilingual Medical Receptionist Relationship Specialty Start Date End Date Jeb Parson DO PCP - General Family Practice 05/11/14 documented as of this encounter
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
--- OUTSIDE RECORDS SUMMARY | 2024-10-04 11:53 | XMS_ITS | Encounter Summary ---
Author Organization [facility] Address [address] [place] [address] Care Team Providers Care Academic Coach Name Role Phone Jeb Parson DO Primary Care Provider +1- [phone] Encounter Details Date Type Department Care Team (Latest Contact Info) Description 09/28/2005 Outpatient Historical [facility] [address] [place] [address] [place] [address] João Blandon MD [address] [place] [phone] Disturbance of Skin Sensation (Primary Dx) Social History Tobacco Use Types Packs/Day Years Used Date Smoking Tobacco: Never Assessed Sex and Gender Information Value Date Recorded Sex Assigned at Not on file Legal Sex Male 3:10 AM EDGE WORKER Gender Identity Not on file Sexual Orientation Not on file documented as of this encounter Plan of Treatment Not on file documented as of this encounter Visit Diagnoses Diagnosis Disturbance of skin sensation- Primary documented in this encounter Care Teams Academic Coach Relationship Specialty Start Date End Date Jeb Parson DO PCP - General Family Practice 05/11/14 documented as of this encounter
--- OUTSIDE RECORDS SUMMARY | 2024-10-04 11:53 | XMS_ITS | Encounter Summary ---
Author Organization [facility] Address [address] [place] [address] Care Team Providers Care Social Sciences Lecturer Name Role Phone Jeb Parson DO Primary Care Provider +1- [phone] Encounter Details Date Type Department Care Team (Latest Contact Info) Description 03/24/2005 Outpatient Historical [facility] [place] [address] [address] Stefanie Keller MD [address] [place] [address] CERVICALGIA (Primary Dx); Skin sensation disturb Social History Tobacco Use Types Packs/Day Years Used Date Smoking Tobacco: Never Assessed Sex and Gender Information Value Date Recorded Sex Assigned at Not on file Legal Sex Male 3:10 AM INTERDISCIPLINARY PROFESSOR Gender Identity Not on file Sexual Orientation Not on file documented as of this encounter Plan of Treatment Not on file documented as of this encounter Visit Diagnoses Diagnosis Cervicalgia- Primary Skin sensation disturb Disturbance of skin sensation documented in this encounter Care Teams Social Sciences Lecturer Relationship Specialty Start Date End Date Jeb Parson DO PCP - General Family Practice 05/11/14 documented as of this encounter
--- OUTSIDE RECORDS SUMMARY | 2024-10-04 11:53 | XMS_ITS | Encounter Summary ---
Author Organization [employer] [facility] Address [address] [place] [address] Care Team Providers Care Tree Fruit And Nut Farming Supervisor Name Role Phone Jeb Parson DO Primary Care Provider +1- [phone] Encounter Details Date Type Department Care Team (Late st Contact Info) Description 11/06/2005 Outpatient Historical [facility] [address] [place] [address] João Blandon MD [address] [place] [address] Social History Tobacco Use Types Packs/Day Years Used Date Smoking Tobacco: Never Assessed Sex and Gender Information Value Date Recorded Sex Assigned at Not on file Legal Sex Male 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
--- OUTSIDE RECORDS SUMMARY | 2024-10-04 11:53 | XMS_ITS | Encounter Summary ---
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
--- OUTSIDE RECORDS SUMMARY | 2024-10-04 11:53 | XMS_ITS | Encounter Summary ---
Author Organization [facility] Address [address] [place] [address] Care Team Providers Care It Security Project Manager Name Role Phone Jeb Parson DO Primary Care Provider +1- [phone] Encounter Details Date Type Department Care Team (Latest Contact Info) Description 08/17/2005 Outpatient Historical [facility] [address] [address] [place] [address] João Blandon MD [address] [place] [phone] Pain in Soft Tissues of Limb (Primary Dx) Social History Tobacco Use Types Packs/Day Years Used Date Smoking Tobacco: Never Assessed Sex and Gender Information Value Date Recorded Sex Assigned at Not on file Legal 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
--- OUTSIDE RECORDS SUMMARY | 2024-10-04 11:53 | XMS_ITS | Encounter Summary ---
Author Organization [facility] Address [address] [place] [address] Care Team Providers Care Cylinder Tester Name Role Phone Jeb Parson DO Primary Care Provider +1- [phone] Encounter Details Date Type Department Care Team (Late st Contact Info) Description 01/07/1998 Outpatient Historical [facility] [place] [address] [place] [address] Social History Tobacco Use Types Packs/Day Years Used Date Smoking Tobacco: Never Assessed Sex and Gender Information Value Date Recorded Sex Assigned at Not on file Legal Sex Male 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
--- OUTSIDE RECORDS SUMMARY | 2024-10-04 11:53 | XMS_ITS | Encounter Summary ---
Author Organization [facility] Address [address] [place] [address] Care Team Providers Care Dealership Manager Name Role Phone Jeb Parson DO Primary Care Provider +1- [phone] Encounter Details Date Type Department Care Team (Latest Contact Info) Description 06/15/2005 Outpatient Historical [facility] [address] 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
--- OUTSIDE RECORDS SUMMARY | 2024-10-04 11:53 | XMS_ITS | Encounter Summary ---
Author Organization [facility] Address [address] [place] [address] Care Team Providers Care Hydrometeorologist Name Role Phone Jeb Parson DO Primary Care Provider +1- [phone] Encounter Details Date Type Department Care Team (Late st Contact Info) Description 04/15/2007 Outpatient Historical [facility] [address] [place] [address] Daphnie Garcia MD [address] [address] Social History Tobacco Use Types Packs/Day Years Used Date Smoking Tobacco: Never Assessed Sex and Gender Information Value Date Recorded Sex Assigned at Not on file Legal Sex Male 3:10 AM HYDROMETEOROLOGIST Gender Identity Not on file Sexual Orientation Not on file documented as of this encounter Plan of Treatment Not on file documented as of this encounter Visit Diagnoses Not on filedocumented in this encounter Care Teams Hydrometeorologist Relationship Specialty Start Date End Date Jeb Parson DO PCP - General Family Practice 05/11/14 documented as of this encounter
--- OUTSIDE RECORDS SUMMARY | 2024-10-04 11:53 | XMS_ITS | Encounter Summary ---
Author Organization [facility] Address [address] [place] [address] Care Team Providers Care Operator Weapon Locating Radar Name Role Phone Jeb Parson DO Primary Care Provider +1- [phone] Encounter Details Date Type Department Care Team (Latest Contact Info) Description 11/30/2003 Outpatient Historical [facility] Medicine- [address] [address] Peri Ellington MD [address] [place] [address] SPRAIN OF HAND NOS (Primary Dx); CONTUSION OF KNEE Social History Tobacco Use Types Packs/Day Years Used Date Smoking Tobacco: Never Assessed Sex and Gender Information Value Date Recorded Sex Assigned at Not on file Legal Sex Male 3: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
--- OUTSIDE RECORDS SUMMARY | 2024-10-04 11:53 | XMS_ITS | Encounter Summary ---
Author Organization [facility] Address [address] [place] [address] Care Team Providers Care Doughnut Icer Machine Name Role Phone Jeb Parson DO Primary Care Provider +1- [phone] Encounter Details Date Type Department Care Team (Latest Contact Info) Description 07/06/2005 Outpatient Historical [facility] [address] [place] [address] [place] [address] João Blandon MD [address] [place] [phone] Follow-Up Examination, Following Unspecified Surgery (Primary Dx) Social History Tobacco Use Types Packs/Day Years Used Date Smoking Tobacco: Never Assessed Sex and Gender Information Value Date Recorded Sex Assigned at Not on file Legal Sex Male 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
--- OUTSIDE RECORDS SUMMARY | 2024-10-04 11:53 | XMS_ITS | Encounter Summary ---
Author Organization [facility] Address [address] [place] [address] Care Team Providers Care Title I Assistant Name Role Phone Jeb Parson DO Primary Care Provider +1- [phone] Encounter Details Date Type Department Care Team (Latest Contact Info) Description 07/06/2005 Outpatient Historical [facility] [address] 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
--- OUTSIDE RECORDS SUMMARY | 2024-10-04 11:53 | XMS_ITS | Encounter Summary ---
Author Organization [facility] Address [address] [place] [address] Care Team Providers Care Child Watch Attendant Name Role Phone Jeb Parson DO Primary Care Provider +1- [phone] Encounter Details Date Type Department Care Team (Late st Contact Info) Description 01/07/1998 Outpatient Historical [facility] Imaging Services-[facility] [place] [address] [place] [address] Social History Tobacco Use Types Packs/Day Years Used Date Smoking Tobacco: Never Assessed Sex and Gender Information Value Date Recorded Sex Assigned at Not on file Legal Sex Male 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
--- OUTSIDE RECORDS SUMMARY | 2024-10-04 11:53 | XMS_ITS | Encounter Summary ---
Author Organization [facility] Address [address] [place] [address] Care Team Providers Care Actuarial Consultant Name Role Phone Jeb Parson DO Primary Care Provider +1- [phone] Encounter Details Date Type Department Care Team (Late st Contact Info) Description 06/25/2005 Inpatient Historical [facility] João Blandon MD [address] [place] [address] Displacement of Cervical Intervertebral Disc without Myelopathy (Primary Dx) Social History Tobacco Use Types Packs/Day Years Used Date Smoking Tobacco: Never Assessed Sex and Gender Information Value Date Recorded Sex Assigned at Not on file Legal Sex Male 3: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
--- OUTSIDE RECORDS SUMMARY | 2024-10-04 11:53 | XMS_ITS | Clinical Summary ---
Author Organization [facility] Address [address] [place] [address] Care Team Providers Care Motor Expert Name Role Phone Jeb Parson DO Primary Care Provider +1- [phone] Allergies Active Allergy Reactions Criticality Noted Date Comments Bacitracin Zinc-Polymyxin B Unknown 05/11/19 15 Medications CELECOXIB (CELEBREX ORAL) Acti ve QUETIAPINE FUMARATE (SEROQUEL ORAL) Acti ve DULOXETINE HCL (CYMBALTA ORAL) Acti ve GABAPENTIN ORAL Acti ve predniSONE (DELTASONE) 20 mg tablet Take 1 Tab by mouth 3 times daily. 90 Tab 1 05/11/2014 Active doxycycline (MONODOX) 100 mg Capsule Take 1 Cap by mouth every 12 hours. 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 COPD (chronic obstructive pulmonary disease) Headache(784.0) Family History Medical History Relation Name Comments Heart Disease Father Macular Degen Father Relation Name Status Comments Father Social History Tobacco Use Types Packs/Day Years Used Date Smoking Tobacco: Every Day Cigarettes Tobacco Cessation:Ready to Q uit: No Alcohol Use Standard Drinks/Week Comments Yes 0 (1 standard drink = 0.6 oz pur e alcohol) Sex and Gender Information Value Date Recorded Sex Assigned at Not on file Legal Sex Male 3:10 AM HUMAN RESOURCES BENEFITS COORDINATOR Gender Identity Not on file Sexual Orientation Not on file Last Filed Vital Signs Vital Sign Reading Time Taken Comments Blood Pressure 132/78 04/09/2016 2:09 PM HUMAN RESOURCES BENEFITS COORDINATOR Pulse 85 08/31/2014 1:11 PM CDT Temperature - - Respiratory Rate - - Oxygen Saturation - - Inhaled Oxygen Concentration - - Weight 77.1 kg (170 lb) 04/09/2016 2:09 PM HUMAN RESOURCES BENEFITS COORDINATOR Height 185.4 cm (6' 1 ) 04/09/2016 2:09 PM HUMAN RESOURCES BENEFITS COORDINATOR Body Mass Index 22.43 04/09/2016 2:09 PM HUMAN RESOURCES BENEFITS COORDINATOR Plan of Treatment Health Maintenance Due Date Last Done Comments DTAP/TDAP/TD VACCINES (1 - Tdap) 07/21/1990 HEPATITIS B VACCINES (1 of 3 - 19+ 3-dose series) 07/11 COLORECTAL SCREENING 07/21/2016 Colorectal Cancer Screening 07/21/2016 FIT-DNA Q 3 years 07/21/2016 FIT/FOBT Q 1 year 07/21/2016 Flex Sig/CT Colonography Q 5 years 07/21/2016 ZOSTER VACCINE (1 of 2) 07/21/2021 INFLUENZA VACCINE (#1) 2023 Insurance MEDICAID [place] Care Teams Motor Expert Relationship Specialty Start Date End Date Jeb Parson DO PCP - General Family Practice 05/11/14
--- OUTSIDE RECORDS SUMMARY | 2024-10-04 11:53 | XMS_ITS | Encounter Summary ---
Author Organization [facility] Address [address] [place] [address] Care Team Providers Care Towboat Pilot Name Role Phone Jeb Parson DO Primary Care Provider +1- [phone] Encounter Details Date Type Department Care Team (Latest Contact Info) Description 09/28/2005 Outpatient Historical [facility] [address] [place] [address] João Blandon MD [address] [place] [phone] Aftercare Following Surgery of the Musculoskeletal System, NEC (Primary Dx) Social History Tobacco Use Types Packs/Day Years Used Date Smoking Tobacco: Never Assessed Sex and Gender Information Value Date Recorded Sex Assigned at Not on file Legal Sex Male 3:10 AM ASSOCIATE PROGRAMMER Gender Identity Not on file Sexual Orientation Not on file documented as of this encounter Plan of Treatment Not on file documented as of this encounter Visit Diagnoses Diagnosis Aftercare following surgery of the musculoskeletal system, NEC- Primary documented in this encounter Care Teams Towboat Pilot Relationship Specialty Start Date End Date Jeb Parson DO PCP - General Family Practice 05/11/14 documented as of this encounter
[2024-10-04 11:58] LABS: Basophils # 0.1 10^3/uL (0.0-0.1); Eosinophils # 0.2 10^3/uL (0.0-0.8); Eosinophils % 1.5 %; Hematocrit 38.8 % (37-53); Lymphocytes # 1.7 10^3/uL (0.8-4.8); Mean Corpuscular HGB Conc 33.5 g/dL (30-55); Mean Corpuscular Hemoglobin 30.2 pg (27-33); Mean Corpuscular Volume 90.2 fl (82-101); Mean Platelet Volume 8.8 fL (7.4-10.4); Monocytes # 0.9 10^3/uL (0.2-0.9); Monocytes % 8.1 %; Neutrophils # 8.41 10^3/uL (1.8-7.7); Neutrophils % 73.9 %; Nucleated Red Blood Cells % 0 %; Platelet Count 471 10^3/cmm (157-399); Red Cell Distribution Width 12.6 % (12.1-15.1); White Blood Count 11.38 10^3/uL (3.29-11.43)
[2024-10-04 12:12] LABS: INR 0.86 (0.8-1.2)
[2024-10-04 12:23] LABS: Troponin(5th) Baseline 11 ng/L (0-15)
[2024-10-04 12:41] LABS: Alanine Aminotransferase 37 U/L (0-41); Albumin Level 4.7 g/dL (3.5-5.2); Alkaline Phosphatase 45 U/L (40-130); Anion Gap 17.5 (5-19); Aspartate Amino Transferase 22 U/L (0-40); Blood Urea Nitrogen 22 mg/dL (6-20); Calcium 10.6 mg/dL (8.5-10.5); Carbon Dioxide 25 mmol/L (22-29); Chloride 97 mmol/L (98-107); Creatinine Clr Calc Pharmacy 59.3429; Globulin 2.8 g/dL (1.3-4.6); Glomerular Filtration Rate 39.7 mL/min (90-130); Glucose 129 mg/dL (65-115); Lipase 58 U/L (13-60); NT Pro B Type Natriuretic Pept 128 pg/mL (0-125); Osmolality Calculated 285 mOsm/kg (285-295); Potassium 4.5 mmol/L (3.5-5.1); Sodium 135 mmol/L (136-145); Total Bilirubin 0.3 mg/dL (0.15-1.2); Total Protein 7.5 g/dL (6.6-8.7)
--- NOTE | 2024-10-04 13:41 | ED_ITS ---
HPI - Arrhythmia/Palpitations 2 General: Chief Complaint: Arrhythmia/Palpitations Stated Complaint: low bp, high hr Time Seen by Provider: 10/04/24 13:39 History of Present Illness: 54-year-old man with a history of chroni c back pain and neck surgery, anxiety, depression, diabetes hypertension, GERD, COPD who presents to the emergency room with concern for low blood pressures and high heart rates. This been going on for some time now. He says that today his home health nurse came to see him and recommended he come to the emergency room for evaluation. He says he was recently on a heart monitor and would like to know what the results of that were. No chest pain today. Apparently he has been getting tachycardic and having low blood pressures at home. Here he is little soft on his blood pressure and his heart rate was 104 initially. When I went to see him blood pressure was in the 130s and his heart rate was down in the 80s. He says he has been out in the heat a little bit recently. No fevers. No chest pain. Related Data Home Medications ?Medication ?Instructions ?Recorded ?Confirmed albuterol sulfate 90 mcg/actuation 2 puff inhalation Q 6H PRN 10/04/24 10/04/24 aerosol inhaler (Ventolin HFA) Shortness Of Breath Or Wheezing lisinopril 20 1 tab PO DAILY 10/04/2409/11 mg-hydrochlorothiazide 25 mg tablet meloxicam 15 mg tablet 15 mg PO DAILY 10/04/2409/11 quetiapine 100 mg tablet 200 mg PO BEDTIME 10/04/24 0 10/04/24 quetiapine 25 mg tablet 50 mg PO BEDTIME 10/04/24 sildenafil (pulm.hypertension) 20 40 mg PO PRN PRN Sex ual Activity 10/04/24 10/04/24 mg tablet tiotropium bromide 18 mcg capsule 1 cap inhalation FLORY LY 10/04/24 10/04/24 with inhalation device (Spiriva with HandiHaler) Previous Rx's ?Medication ?Instructions ?Recorded TENS #1 ea 03/02/22 amlodipine 10 mg tablet 10 mg PO DAILY 90 days #90 t abs 04/25/24 atorvastatin 10 mg tablet 10 mg PO DAILY 90 days #90 t abs 04/25/24 budesonide-formoterol HFA 160 2 puff inhalation BID #1 0.2 grams 04/25/24 mcg-4.5 mcg/actuation aerosol inhaler (Symbicort) fenofibrate nanocrystallized 145 145 mg PO DAILY 90 da ys #90 tabs 04/25/24 mg tablet gabapentin 800 mg tablet See Rx Instructions .Route 0 04/25/24 .COMPLEX #90 tabs lisinopril 10 mg tablet 10 mg PO DAILY 90 days #90 t abs 04/25/24 metformin 500 mg tablet,extended 500 mg PO QDAY 90 day s #90 tabs 04/25/24 release 24 hr omeprazole 40 mg capsule,delayed 40 mg PO DAILY 90 day s #90 caps 04/25/24 release duloxetine 60 mg capsule,delayed 60 mg PO BID #60 caps 09/22/24 release escitalopram oxalate 10 mg tablet 10 mg PO DAILY #30 t abs 09/22/24 Allergies Allergy/AdvReac Type Severity Reaction Status Date / Time acetaminophen (From Lortab) Allergy ALGY-Hives Verified 10/04/24 11:18 cyclobenzaprine (From Allergy Unknown Verified 10/04/24 11:18 Flexeril) hydrocodone (From Lortab) Allergy ALGY-Hives Verified 10/04/24 11:18 povidone-iodine (From Allergy Unknown Verified 10/04/24 11:18 Betadine) soap (From Betadine) Allergy Unknown Verified 10/04/24 11:18 Review of Systems 2 Narrative: Constitutional symptoms: Negative except as documented in HPI. Skin symptoms: Negative except as documented in HPI. Eye symptoms: Negative except as documented in HPI. ENMT symptoms: Negative except as documented in HPI. Respiratory symptoms: Negative except as documented in HPI. Cardiovascular symptoms: Negative except as documented in HPI. Gastrointestinal symptoms: Negative except as documented in HPI. Genitourinary symptoms: Negative except as documented in HPI. Musculoskeletal symptoms: Negative except as documented in HPI. Neurologic symptoms: Negative except as documented in HPI. Psychiatric symptoms: Negative except as documented in HPI. Endocrine symptoms: Negative except as documented in HPI. PFSH ED 2 PFSH: Medical History On combination antipsychotic drug therapy Hepatic steatosis Psychiatric care Umbilical hernia, incarcerated Generalized anxiety disorder Major depressive disorder, recurrent, moderate Prediabetes Essential hypertension Anxiety and depression DDD (degenerative disc disease), cervical GERD (gastroesophageal reflux disease) COPD (chronic obstructive pulmonary disease) Erectile dysfunction Surgical History H/O cataract extraction History of neck surgery H/O knee surgery Family History Other CAD (coronary artery disease) Social History Smoking and tobacco/nicotine status: former use of tobacco/nicotine Alcohol intake: current Alcohol intake frequency: 0-2 Drinks per Day Alcohol type: beer Substance/Drug Use: current Substance/Drug use frequency: daily Physical Exam 2 Narrative: EXAM NARRATIVE: General: Alert, no acute distress. Skin: Warm, dry. Head: Normocephalic, atraumatic. Neck: Supple, trachea midline. Eye: Extraocular movements are intact. Ears, nose, mouth and throat: mucosa moist. Cardiovascular: Regular, Normal peripheral perfusion. Respiratory: Lungs are clear to auscultation, respirations are non-labored, breath sounds are equal, Symmetrical chest wall expansion. Gastrointestinal: Soft, Nontender, Non distended Musculoskeletal: Normal ROM, no deformity. Neurological: Alert and oriented, No focal neurological deficit observed. Psychiatric: Cooperative, appropriate mood & affect. Course 2 Vital Signs: Vital signs: Vital Signs Temperature 97.8 F 10/04/24 11:13 Pulse Rate 88 10/04/24 16:43 Respiratory Rate 18 10/04/24 15:33 Blood Pressure 124/80 10/04/24 16:43 Pulse Oximetry 99 10/04/24 16:43 Oxygen Delivery Me thod Room Air 10/04/24 11:13 MDM - Arrhythmia/Palpitations Medical Decision Making Medical decision making: Differential diagnosis including but not limited to and based on the above HPI, review of systems and physical exam: for patient with palpitations: atrial fibrillation with rapid ventricular response. ventricular tachycardia. sinus tachycardia. PVCs. also concern for underlying issues causing tachycardia. Infection, electrolyte abnormalities and thyroid issues. Orders placed to evaluate differential diagnosis based on the above differential, HPI and physical exam EKG: Time 11:25 AM. Rate 94. Normal sinus rhythm, No ST-T changes, no ectopy, normal WI & QRS intervals, This was reviewed and interpreted by the ER physician at 11:30 AM Chest x-ray: No acute process. No infiltrate. No pneumothorax. This was reviewed and interpreted by myself the emergency room physician. I also reviewed the radiology report. CT head: No acute intracranial process. no intracranial hemorrhage, no evidence of infarct. no evidence of acute fracture.This was reviewed and interpreted by myself the ER physician. CT of the abdomen pelvis: No acute process. No renal obstructions or calcifications. This was reviewed and interpreted by myself the emergency room physician. I also reviewed the radiology report. Lab Review: Laboratory results were reviewed and interpreted by myself the emergency room physician. No leukocytosis. No anemia. Patient does have a significant increase in his BUN/creatinine at 22 and 1.8. I reviewed the patient's medical record. Reexamination: Patient's blood pressure has improved and his heart rate has come down to normal. He says he feels better. We discussed holding his lisinopril. He will follow with his primary care provider. He quit drinking fairly recently and and he think that may be his hypertension is being overtreated now that he is off the alcohol. Assessment and plan: Dehydration Renal insufficiency ? Normal saline bolus in the emergency room. Holding lisinopril. - Discharged home - Discussed plan with patient. Answered any questions. - Evaluation and treatment of this problem were appropriate in the emergency setting. Lab Data 10/04/24 11:49 10/04/24 11:49 Radiology Impressions Chest X-Ray 10/04/24 11:26 IMPRESSION: 1. Negative chest. Abdomen/Pelvis CT 10/04/24 13:56 IMPRESSION: 1. No acute abdominal or pelvic abnormalities. 2. No ascites. 3. No renal obstruction or calcification. 4. Hepatic steatosis. 5. Long-term stability subcentimeter nodules RIGHT lower lobe. Head CT 10/04/24 13:56 IMPRESSION: 1. No acute intracranial hemorrhage or edema. 2. Mild cerebral atrophy and small vessel disease. Laboratory Results WBC 11.38 10^3/uL (3.29-11.43) 10/04/24 11:49 RBC 4.30 10^6/uL (3.85-5.65) 10/04/24 11:49 Hgb 13.00 g/dL (11.27-16.99) 10/04/24 11:49 Hct 38.8 % (37-53) 10/04/24 11:49 MCV 90.2 fl (82-101) 10/04/24 11:49 MCH 30.2 pg (27-33) 10/04/24 11:49 MCHC 33.5 g/dL (30-55) 10/04/24 11:49 RDW 12.6 % (12.1-15.1) 10/04/24 11:49 Plt Count 471 10^3/cmm (157-399) H 10/04/24 11:49 MPV 8.8 fL (7.4-10.4) 10/04/24 11:49 Neut % (Auto) 73.9 % 10/04/24 11:49 Lymph % (Auto) 15.0 % 10/04/24 11:49 Haralson % (Auto) 8.1 % 10/04/24 11:49 Eos % (Auto) 1.5 % 10/04/24 11:49 Baso % (Auto) 1.0 % 10/04/24 11:49 Neut # (Auto) 8.41 10^3/uL (1.8-7.7) H 10/04/24 11:49 Lymph # (Auto) 1.7 10^3/uL (0.8-4.8) 10/04/24 11:49 Haralson # (Auto) 0.9 10^3/uL (0.2-0.9) 10/04/24 11:49 Eos # (Auto) 0.2 10^3/uL (0.0-0.8) 10/04/24 11:49 Baso # (Auto) 0.1 10^3/uL (0.0-0.1) 10/04/24 11:49 Nucleated RBC % (auto) 0 % 10/04/24 11:49 Nucleated RBCs # 0.0 /100WBC 10/04/24 11:49 PT 12.40 SECONDS (12.1-14.9) 10/04/24 11:49 INR 0.86 (0.8-1.2) 10/04/24 11:49 Sodium 135 mmol/L (136-145) L 10/04/24 11:49 Potassium 4.5 mmol/L (3.5-5.1) 10/04/24 11:49 Chloride 97 mmol/L (98-107) L 10/04/24 11:49 Carbon Dioxide 25 mmol/L (22-29) 10/04/24 11:49 Anion Gap 17.5 (5-19) 10/04/24 11:49 BUN 22 mg/dL (6-20) H 10/04/24 11:49 Creatinine 1.8 mg/dL (0.7-1.2) H 10/04/24 11:49 GFR Calculation 39.7 mL/min (90-130) L 10/04/24 11:49 Glucose 129 mg/dL (65-115) H 10/04/24 11:49 Calculated Osmolality 285 mOsm/kg (285-295) 10/04/24 11:49 Calcium 10.6 mg/dL (8.5-10.5) H 10/04/24 11:49 Total Bilirubin 0.3 mg/dL (0.15-1.2) 10/04/24 11:49 AST 22 U/L (0-40) 10/04/24 11:49 ALT 37 U/L (0-41) 10/04/24 11:49 Alkaline Phosphatase 45 U/L (40-130) 10/04/24 11:49 Troponin T Baseline 11 ng/L (0-15) 10/04/24 11:49 Troponin T 120 Minute 8.98 ng/L (0-15) 10/04/24 13:52 Delta Troponin T -2.02 ABS# (0-10) L 10/04/24 13:52 NT-Pro-B Natriuret Pep 128 pg/mL (0-125) H 10/04/24 11:49 Total Protein 7.5 g/dL (6.6-8.7) 10/04/24 11:49 Albumin 4.7 g/dL (3.5-5.2) 10/04/24 11:49 Globulin 2.8 g/dL (1.3-4.6) 10/04/24 11:49 Lipase 58 U/L (13-60) 10/04/24 11:49 All radiology interpretation(s) finalized by discharge Discharge Plan Discharge Patient Disposition: Home Clinical Impression: Acute renal insufficiency, Dehydration Condition: Stable Prescriptions: No Action (DME) TENS See Rx Instructions .Route .MEDSUPPLY Qty: 1 0RF Rx Instructions: As directed amlodipine 10 mg tablet 10 mg PO DAILY 90 Days Qty: 90 2RF atorvastatin 10 mg tablet 10 mg PO DAILY 90 Days Qty: 90 2RF budesonide-formoterol [Symbicort] 160-4.5 mcg/actuation HFA aerosol inhaler 2 puff INHALATION BID Qty: 10.2 6RF fenofibrate nanocrystallized 145 mg tablet 145 mg PO DAILY 90 Days Qty: 90 2RF lisinopril 10 mg tablet 10 mg PO DAILY 90 Days Qty: 90 2RF gabapentin 800 mg tablet See Rx Instructions .ROUTE .COMPLEX Qty: 90 6RF Dose Instruction: TAKE ONE TABLET BY MOUTH THREE TIMES A DAY Rx Instructions: Take 2 tablets by mouth in the morning and 1 tablet in the evening. metformin 500 mg tablet extended release 24 hr 500 mg PO QDAY 90 Days Qty: 90 2RF omeprazole 40 mg capsule,delayed release(DR/EC) 40 mg PO DAILY 90 Days Qty: 90 2RF escitalopram oxalate 10 mg tablet 10 mg PO DAILY Qty: 30 5RF duloxetine 60 mg capsule,delayed release(DR/EC) 60 mg PO BID Qty: 60 5RF quetiapine 25 mg tablet 50 mg PO BEDTIME Rx Instructions: along with 100mg 2 tablets at bedtime [id number] total meloxicam 15 mg tablet 15 mg PO DAILY quetiapine 100 mg tablet 200 mg PO BEDTIME Rx Instructions: along with 25mg 2 tablets at bedtime [id number] total lisinopril-hydrochlorothiazide 20-25 mg tablet 1 tab PO DAILY Patient Comments: albuterol sulfate [Ventolin HFA] 90 mcg/actuation HFA aerosol inhaler 2 puff inhalation Q6H PRN (Reason: Shortness Of Breath Or Wheezing) tiotropium bromide [Spiriva with HandiHaler] 18 mcg capsule, w/inhalation device 1 cap inhalation DAILY sildenafil (pulm.hypertension) 20 mg tablet 40 mg PO PRN PRN (Reason: Sexual Activity) Rx Instructions: 1 HOUR BEFORE SEXUAL ACTIVITY Discharge Orders: Discharge ED (Routine); Ordered 10/04/24 Ordered By: Jeanette Tyler Referrals: Sailaja Eddy MD [Primary Care Provider, Family Practice] Discharge Diet: Usual diet Discharge Activity: Increase activity as tolerated Patient Instructions: Acute Kidney Injury (DC), Opioid Safety, Pain Management, Patient Portal & Sherry Instructions Activity Restrictions/Additional Instructions: Please hold your lisinopril for the next few days and follow-up with your primary care before resuming. You also need to follow with your primary care to have your kidney function rechecked in 3 to 5 days. Thank you for choosing [facility] for your healthcare needs today. You have been screened and evaluated and felt safe for discharge. Health conditions do change or evolve sometimes and as such it is important that you follow up with your Primary Doctor to be re checked, 3-5 days is a general good time frame for follow up. You are always welcome to return to the ED for re assessment if your symptoms are worsening or you have new concerns Print Language: Angolan Coding Level of Care Code ED Java Manager for Danielle Hackett
--- NOTE | 2024-10-04 13:56 | CT_ITS ---
WS: [id number] CT HEAD NONCONTRAST HISTORY: dizziness TECHNIQUE: Contiguous axial imaging performed through the brain. Bone and soft tissue windows. Sagittal and coronal reformats reviewed. All CT scans at [facility] use at least one of these dose optimization techniques: automated exposure control; mA and/or kV adjustment per patient size (includes targeted exams where dose is matched to clinical indication); or iterative reconstruction. DLP: 1061.90 mGy.cm COMPARISON: None available. No acute intracranial hemorrhage, midline shift or mass effect. Mild atrophy. Mild small vessel disease. No prior infarct. Posterior fossa is negative. Ventricles: Normal size with no hydrocephalus. No inferior displacement of the cerebellar tonsils. Paranasal sinuses: As visualized are clear. Mastoid air cells: Well pneumatized. Calvarium and scalp: Skull is intact with no soft tissue edema or swelling. CT/CT head wo con* [id number] IMPRESSION: 1. No acute intracranial hemorrhage or edema. 2. Mild cerebral atrophy and small vessel disease.
--- NOTE | 2024-10-04 13:56 | CT_ITS ---
WS: [id number] CT ABDOMEN AND PELVIS NONCONTRAST HISTORY: Renal failure, r/o obstructive uropathy TECHNIQUE: Imaging performed through the abdomen and pelvis. Coronal and sagittal reformats are submitted. All CT scans at [facility] use at least one of these dose optimization techniques: automated exposure control; mA and/or kV adjustment per patient size (includes targeted exams where dose is matched to clinical indication); or iterative reconstruction. DLP: 994.30 mGy.cm COMPARISON: 04/24/2013 Lower thorax: Long-term stability 6 mm noncalcified nodule RIGHT lower lobe. No change since 2013. There are a few additional nodules in the RIGHT lower lobe which are also stable. No new mass and no pneumonia. Normal size heart. No hiatal hernia. Liver: Hepatic steatosis. Normal size liver. No intrahepatic duct dilatation. Gallbladder: Normal gallbladder. No pericholecystic fluid or cholelithiasis. No gallbladder wall thickening. Pancreas: Normal size and attenuation. Normal pancreatic duct. No pancreatitis or mass. Spleen: Normal. Adrenal glands: Normal. No mass. Right kidney: Normal size kidney with no mass or hydronephrosis. Left kidney: Normal size kidney with no mass or hydronephrosis. Aorta: Mild atherosclerosis abdominal aorta with no aneurysm. No free fluid, intraperitoneal air or significant lymphadenopathy. GI tract: Normal noncontrast imaging of the stomach, small bowel and colon. No obstruction or wall thickening. Appendix not visualized. Abdominal wall: Tiny umbilical hernia contains fat only. Pelvis: Normal urinary bladder. No free fluid. No adenopathy. Fat-containing inguinal hernias. Osseous structures: Unremarkable. CT/CT abdomen pelvis wo con [id number] IMPRESSION: 1. No acute abdominal or pelvic abnormalities. 2. No ascites. 3. No renal obstruction or calcification. 4. Hepatic steatosis. 5. Long-term stability subcentimeter nodules RIGHT lower lobe.
[2024-10-04] MEDS: sodium chloride 0.9% 1,000 ML 999 ML IV (14:09)
[2024-10-04 14:19] VITALS: BP 119/75
--- NOTE | 2024-10-04 14:27 | PC.PHAR ---
Pt uses [facility] [phone]-Nurse is Clint.
[2024-10-04 14:30] LABS: Troponin 5 2HR 8.98 ng/L (0-15)
[2024-10-04 14:33] LABS: Troponin 5 2HR Delta -2.02 ABS# (0-10)
--- NOTE | 2024-10-04 15:28 | PC.NURSE ---
educated pt on need for urine sample x3 times; pt refusing catheter, requesting water.
[2024-10-04 15:33] VITALS: BP 152/75; PULSE 89; RESP 18; O2SAT 98
[2024-10-04 16:43] VITALS: BP 124/80; PULSE 88; O2SAT 99
== END 2024-10-04 16:44 | disposition home or self-care (01) ==
PROVIDERS: Emergency Medicine; Emergency Provider Emergency Medicine; PCP Family Medicine
DX: N28.9 Disorder of kidney and ureter, unspecified (principal); E86.0 Dehydration; Z87.891 Personal history of nicotine dependence; J44.9 Chronic obstructive pulmonary disease, unspecified; I10 Essential (primary) hypertension
CPT/HCPCS: 36415; 70450; 71045; 74176; 80053; 83690; 83880; 84484; 85025; 85610; 93005; 99285; J7030

== ENCOUNTER → 2024-10-11 10:49 | Outpatient (BNVA) | payer MEDICAID, SELFPAY ==
[2024-07-28 14:57] VITALS: BP 144/85; BMI 31.5
== END ==
PROVIDERS: PCP Family Medicine; Visit Provider Student in an Organized Health Care Education/Training Program
DX: S42.402A Unspecified fracture of lower end of left humerus, initial encounter for closed fracture (principal); S49.92XA Unspecified injury of left shoulder and upper arm, initial encounter; M75.42 Impingement syndrome of left shoulder; S52.123A Displaced fracture of head of unspecified radius, initial encounter for closed fracture; X58.XXXA Exposure to other specified factors, initial encounter
CPT/HCPCS: 20610; 73080; 99214; J3301; J9999

== ENCOUNTER → 2024-10-26 10:38 | Outpatient (BNVA) | payer MEDICAID, SELFPAY ==
[2024-07-28 14:57] VITALS: BP 144/85; BMI 31.5
== END ==
PROVIDERS: PCP Family Medicine; Visit Provider Family Medicine
DX: I10 Essential (primary) hypertension (principal); R73.03 Prediabetes
CPT/HCPCS: 80053; 83036

== ENCOUNTER → 2024-11-08 10:00 | Outpatient (BNVA) | payer MEDICAID, SELFPAY ==
[2024-07-28 14:57] VITALS: BP 144/85; BMI 31.5
== END ==
PROVIDERS: PCP Family Medicine; Referring Provider Family Medicine; Visit Provider Psychiatry & Neurology Neurology
DX: R55 Syncope and collapse (principal); H54.7 Unspecified visual loss
CPT/HCPCS: 99203

== ENCOUNTER → 2024-11-10 09:35 | Outpatient (BNVA) | payer MEDICAID, SELFPAY ==
[2024-07-28 14:57] VITALS: BP 144/85; BMI 31.5
== END ==
PROVIDERS: PCP Family Medicine; Visit Provider Internal Medicine Cardiovascular Disease
DX: G90.A Postural orthostatic tachycardia syndrome [POTS] (principal); R07.9 Chest pain, unspecified; Z87.891 Personal history of nicotine dependence
CPT/HCPCS: 99204

== ENCOUNTER → 2024-11-24 07:41 | Outpatient (BNVA) | payer MEDICAID, SELFPAY ==
[2024-07-28 14:57] VITALS: BP 144/85; BMI 31.5
== END ==
PROVIDERS: PCP Family Medicine; Referring Provider Specialist; Visit Provider Specialist
DX: R55 Syncope and collapse (principal)
CPT/HCPCS: 95819

== ENCOUNTER → 2024-11-29 13:53 | Outpatient (BNVA) | payer MEDICAID, SELFPAY ==
[2024-07-28 14:57] VITALS: BP 144/85; BMI 31.5
== END ==
PROVIDERS: PCP Family Medicine; Visit Provider Student in an Organized Health Care Education/Training Program
DX: M16.11 Unilateral primary osteoarthritis, right hip (principal)
CPT/HCPCS: 99213

== ENCOUNTER → 2024-11-30 09:52 | Outpatient (BNVA) | payer MEDICAID, SELFPAY ==
[2024-07-28 14:57] VITALS: BP 144/85; BMI 31.5
== END ==
PROVIDERS: PCP Family Medicine; Referring Provider Family Medicine; Visit Provider Nurse Practitioner
DX: R55 Syncope and collapse (principal)
CPT/HCPCS: 99212

== ENCOUNTER 2024-12-08 06:38 | Outpatient (CLI) | payer MEDICAID, SELFPAY ==
[2024-07-28 14:57] VITALS: BP 144/85; BMI 31.5
--- NOTE | 2024-12-08 07:00 | USCV_ITS ---
Joselito Harris Age: 54 Gender: M : 1970 Exam Date: 12/08/2024 06:51 Ordering Phys: Jared Wu MD ([email or web address]) Technologist: ROSAURA Exam Location: [facility] [place] Indication: Syncope BP: 112 / 75 HR: 53 Rhythm: Sinus Technical Quality: Adequate MEASUREMENTS (Male / Female) Normal Values 2D ECHO LV Diastolic Diameter PLAX 4.5 cm 4.2 - 5.9 / 3.9 - 5.3 cm IVS Diastolic Thickness 0.8 cm 0.6 - 1.0 / 0.6 - 0.9 cm IVS Systolic Thickness 1.6 cm LVPW Diastolic Thickness 1.1 cm 0.6 - 1.0 / 0.6 - 0.9 cm LVPW Systolic Thickness 1.5 cm LVOT Diameter 2.0 cm LV Ejection Fraction 2D Teich 63.5 % LV Ejection Fraction MOD 4C 64.5 % LV Ejection Fraction MOD 2C 49.2 % LV Ejection Fraction 2C AL 52.2 % LA Diameter 4.3 cm RA Systolic Volume 4C AL 41.4 ml RA Systolic Volume 4C MOD 40.0 ml LA Sys Volume AL 53.3 cm cubed LA Sys Volume Index AL 23.4 cm cubed/m squared Aorta at Sinotubular Diameter 2.2 cm IVC Diameter 2.0 cm M-MODE LA Ao Ratio MM 1.7 AV Cusp Separation MM 2.2 cm DOPPLER AV Peak Velocity 120.0 cm/s LVOT Peak Velocity 82.0 cm/s AV Area Cont Eq vti 2.2 cm squared AV Area Cont Eq pk 2.1 cm squared MV Peak Velocity 114.0 cm/s MV Area PHT 5.0 cm squared Mitral E to A Ratio 2.0 TR Peak Velocity 243.0 cm/s TR Peak Gradient 23.6 mmHg TV Peak E Velocity 73.0 cm/s PV Peak Velocity 100.0 cm/s FINDINGS Left Ventricle Normal left ventricular size, systolic function and wall thickness, with no regional wall motion abnormalities. Left ventricular ejection fraction is estimated at 63%. Normal diastolic function. Right Ventricle Normal right ventricular size and systolic function. Normal right ventricular systolic pressure. Right Atrium Normal right atrial size. Left Atrium Normal left atrial size. Mitral Valve Structurally normal mitral valve. No mitral valve stenosis. Mild mitral valve regurgitation. Aortic Valve No aortic valve stenosis. No aortic valve regurgitation. Tricuspid Valve Trace tricuspid valve regurgitation. Pulmonic Valve No pulmonary valve regurgitation. No pulmonary valve stenosis. Pericardium No pericardial effusion. Aorta Normal size aortic root and proximal ascending aorta. IVC Normal inferior vena cava. CONCLUSIONS 1. Normal left ventricular and right ventricular size and systolic function. Left ventricular ejection fraction 63%. 2. Mild mitral valve regurgitation Jared Wu MD, FACC (Electronically Signed) Final Date: 08 December 2024 19:20 S
--- NOTE | 2024-12-08 07:46 | ECG_ITS ---
cicayda Test Date: 2024-12-08 Pat Name: Joselito Harris Department: Room: Gender: Male [employer] Supervisor: : 1970 Requested By: Jared Wu Order Number: [id number] Pal MD: Jared Wu M.D. Interpretive Statements Procedure: A total of 0.4 mg of Lexiscan was infused over 20 seconds. The stress phase was continued for a total of 5 minutes. Sestamibi was injected 20 seconds after the Lexiscan infusion. Vital signs and ECG findings: Baseline blood pressure was 127/76 with heart rate 62 bpm. the end of the stress portion of the stress test the patient's blood pressure was 117/68 with a heart rate of 77. In recovery the patient blood pressure was 122/73 with heart rate of 76 bpm. Baseline EKG showed normal sinus rhythm, incomplete right bundle branch block. No ST or ischemic EKG changes with stress test. Conclusion: 1. Normal EKG response to Lexiscan infusion 2. No Lexiscan induced chest pain or cardiac arrhythmia. 3. Normal blood pressure and heart rate response. 4. Nuclear myocardial perfusion scan pending; see separate report. Electronically Signed On 12-08-2024 15:05:59 CDT by Jared Wu M.D. [email or web address]
--- NOTE | 2024-12-08 07:47 | NMCV_ITS ---
NM chaitanya perf SPECT r/s* [id number] StevenJoselito Age: 54 Gender: M : 1970 Exam Date: 12/08/2024 08:25 Ordering Phys: Jared Wu MD ([email or web address]) Technologist: YAMILE Haynes Exam Location: [facility] Indications: cp STRESS TEST Please see separate stress test report in [facility] for full findings IMAGE PROTOCOL Rest/Stress 1 Lexiscan Day Radiopharmaceutical Dose (mCi) Administration Site Administered by Rest: Tc-99m 10.5 IV YAMILE Haynes Sestamibi Stress:Tc-99m 32.9 IV YAMILE Carballo Sestamibi Rest: 08-Dec-2024 60 Discovery 630 Stress: 08-Dec-2024 30 Discovery 630 0.4mg Lexiscan. Images obtained in supine and prone position. SPECT RESULTS Technical Quality: Good Raw Data Analysis: Normal Image Corrections: No attenuation or motion correction applied Summed Stress Score: 0 Summed Rest Score: 1 Summed Difference Score: 0 PERFUSION FINDINGS Myocardial perfusion imaging reveals a small fixed defect in the basal inferior wall consistent with diaphragmatic attenuation FUNCTIONAL RESULTS (calculated via Gated SPECT) Stress Image LV EF (%): 67 Stress EDV (mL):102 TID: 1.09 Stress ESV (mL):34 FUNCTIONAL FINDINGS: There is normal left ventricular cavity size and systolic function. EF 67%. IMPRESSIONS Myocardial perfusion imaging is consistent with diaphragmatic attenuation artifact with no infarction or ischemia. Normal left ventricular systolic function. Jared uW MD, FACC (Electronically Signed) Final Date: 08 December 2024 19:00 S
[2024-12-08 09:15] VITALS: BP 122/73; PULSE 67
== END 2024-12-08 06:39 | disposition home or self-care (01) ==
LOC: CDL 06:40
PROVIDERS: PCP Family Medicine; Visit Provider Internal Medicine Cardiovascular Disease
DX: R55 Syncope and collapse (principal); R93.1 Abnormal findings on diagnostic imaging of heart and coronary circulation; I34.0 Nonrheumatic mitral (valve) insufficiency
CPT/HCPCS: 36415; 78452; 93017; 93306; 96374; A9500; J2785

== ENCOUNTER → 2024-12-29 09:28 | Outpatient (BNVA) | payer MEDICAID, SELFPAY ==
[2024-07-28 14:57] VITALS: BP 144/85; BMI 31.5
== END ==
PROVIDERS: PCP Family Medicine; Visit Provider Student in an Organized Health Care Education/Training Program
DX: M16.11 Unilateral primary osteoarthritis, right hip (principal); Z71.89 Other specified counseling
CPT/HCPCS: 20610; 77002; J3301; J9999

== ENCOUNTER → 2025-01-23 10:14 | Outpatient (BNVA) | payer MEDICAID, SELFPAY ==
[2024-07-28 14:57] VITALS: BP 144/85; BMI 31.5
== END ==
PROVIDERS: PCP Family Medicine; Visit Provider Student in an Organized Health Care Education/Training Program
DX: M25.511 Pain in right shoulder (principal); M75.41 Impingement syndrome of right shoulder
CPT/HCPCS: 20610; 73030; 99214; J3301; J9999

== ENCOUNTER → 2025-02-06 09:45 | Outpatient (BNVA) | payer MEDICAID, SELFPAY ==
[2024-07-28 14:57] VITALS: BP 144/85; BMI 31.5
== END ==
PROVIDERS: PCP Family Medicine; Visit Provider Internal Medicine Cardiovascular Disease
DX: R55 Syncope and collapse (principal); R07.9 Chest pain, unspecified; R00.0 Tachycardia, unspecified; M79.604 Pain in right leg; M79.605 Pain in left leg
CPT/HCPCS: 99214

== ENCOUNTER 2025-02-22 09:41 | Outpatient (CLI) | payer MEDICAID, SELFPAY ==
[2024-07-28 14:57] VITALS: BP 144/85; BMI 31.5
--- NOTE | 2025-02-22 09:45 | USR_ITS ---
PROCEDURE INFORMATION: Exam: US Duplex Bilateral Lower Extremity Arteries Exam date and time: 02/22/2025 9:59 AM Age: 54 years old Clinical indication: Pain; Leg, lower; Bilateral; Additional info: Bilat leg pain TECHNIQUE: Imaging protocol: Real-time ultrasound scan of the arteries of the bilateral lower extremities with 2-D diaz scale, color Doppler flow and spectral waveform analysis. Images documented and saved. COMPARISON: CT abdomen pelvis wo con [id number] 10/04/2024 2:19 PM FINDINGS: Right common femoral artery: No occlusion or significant stenosis. Normal triphasic waveform. PSV 70 cm/sec. Right superficial femoral artery: No occlusion or significant stenosis. Normal triphasic waveform. PSV 67, 89 and 69 cm/sec for the proximal, mid and distal SFA, respectively. Right popliteal artery: No occlusion or significant stenosis. Normal triphasic waveform. PSV 47 cm/sec Right calf/foot arteries: No occlusion or significant stenosis in the visualized arteries. Normal triphasic waveforms. Dorsalis pedis artery is patent with PSV 79 cm/sec. Left common femoral artery: No occlusion or significant stenosis. Normal triphasic waveform. PSV 76 cm/sec Left superficial femoral artery: No occlusion or significant stenosis. Normal triphasic waveform. PSV 63, 67 and 56 cm/sec for the proximal, mid and distal SFA, respectively. Left popliteal artery: No occlusion or significant stenosis. Normal triphasic waveform. PSV 44 cm/sec Left calf/foot arteries: No occlusion or significant stenosis in the visualized arteries. Normal waveforms. Dorsalis pedis artery is patent with PSV 69 cm/sec. US/CV arterial duplex [facility] [id number] IMPRESSION: No stenosis or occlusion.
== END 2025-02-22 09:42 | disposition home or self-care (01) ==
LOC: RAD 09:42
PROVIDERS: PCP Family Medicine; Visit Provider Internal Medicine Cardiovascular Disease
DX: M79.604 Pain in right leg (principal); M79.605 Pain in left leg
CPT/HCPCS: 93925

== ENCOUNTER → 2025-03-23 09:49 | Outpatient (BNVA) | payer MEDICAID, SELFPAY ==
[2024-07-28 14:57] VITALS: BP 144/85; BMI 31.5
== END ==
PROVIDERS: PCP Family Medicine; Visit Provider Student in an Organized Health Care Education/Training Program
DX: M16.11 Unilateral primary osteoarthritis, right hip (principal); Z71.89 Other specified counseling
CPT/HCPCS: 20610; 77002; J3301; J9999